=== PATIENT | male | born 1945 | race Caucasian/White ===

== ENCOUNTER → 2024-03-04 | Outpatient (CLI) | payer MEDICARE, SELFPAY ==
[2024-03-04 12:22] LABS: Absolute Lymphocyte Count 2.99 X10^3/uL (0.83-4.51); Absolute Neutrophil Count 4.1 X10^3/uL (2.0-7.7); Basophil# 0.06 X10^3/uL; Basophil% 0.8 % (0-1); Eosinophil# 0.07 X10^3/uL; Eosinophils% 0.9 % (0-5); Hematocrit 44.4 % (40-54); Hemoglobin 14.2 g/dL (13.0-16.5); Lymphocyte # 2.99 X10^3/ul (0.83-4.51); Lymphocyte % 38.3 % (19-41); Mean Corpuscular Hgb 29.1 pg (27.0-32.0); Mean Platelet Vol. 8.7 fl (6.2-12.0); Monocyte# 0.61 X10^3/uL; Monocyte% 7.8 % (0-10); NRBC Flagged by Analyzer 0 % (0-5); Neutrophil # 4.06 X10^3/uL (2.7-7.7); Neutrophil % 51.9 % (47-70); Platelet Count 149 K/mm3 (150-450); RBC Distribution Width SD 46.3 fl (35.1-43.9); Red Blood Count 4.88 M/mm3 (4.6-6.2); White Blood Count 7.8 K/mm3 (4.4-11.0)
[2024-03-04 12:42] LABS: ALB/GLOB Ratio 1.2 RATIO (0.9-2.4); AST(SGOT) 25 U/L (15-37); Alanine Aminotransfer ALT/SGPT 42 U/L (16-61); Albumin, Serum 3.4 g/dL (3.2-5.0); Alkaline Phosphatase 107 U/L (45-117); Anion Gap 1 (5-15); BUN 23 mg/dL (7-18); BUN/Creat Ratio 19.3 RATIO (10-20); Chloride 106 mmol/L (98-107); Cholesterol 133 mg/dL (200); Creatinine, Serum 1.19 mg/dL (0.70-1.30); EST Glomerular Filtration Rate 63 mL/min (>60); Est Glom Filt Rate - Afr Amer 76 mL/min (>60); Globulin 2.8 g/dL (2.2-4.2); Glucose 93 mg/dL (74-106); High Density Lipoprotein 50 mg/dL; Potassium 4.3 mmol/L (3.5-5.1); Protein, Total 6.2 g/dL (6.4-8.2); Sodium Level 139 mmol/L (136-145); Triglycerides 107 mg/dL; Very Low Density Lipoprotein 21 mg/dL (5-40)
== END | disposition home or self-care (01) ==
LOC: MTLAB 10:01
PROVIDERS: PCP Family Medicine; Referring Provider Family Medicine; Visit Provider Family Medicine
DX: C91.10 Chronic lymphocytic leukemia of B-cell type not having achieved remission (principal); E78.5 Hyperlipidemia, unspecified; I10 Essential (primary) hypertension
CPT/HCPCS: 36415; 80053; 80061; 85025

== ENCOUNTER → 2025-01-21 | Outpatient (CLI) | payer MEDICARE, SELFPAY ==
--- NOTE | 2025-01-21 11:20 | RAD_ITS ---
EXAM: XR Left Hip With Pelvis When Performed, 2 or 3 Views CLINICAL INDICATION: HIP PAIN TECHNIQUE: Two or three views of the left hip with pelvis when performed. COMPARISON: No relevant prior studies available. FINDINGS: BONES/JOINTS: Moderate degenerative changes of the left hip joint. No acute fracture. No dislocation. SOFT TISSUES: Unremarkable. RAD/HIP, UNI W/ Pelvis 2-3 Views IMPRESSION: Degenerative changes as above. Reading Location: [facility]
[2025-01-21 12:52] LABS: Absolute Lymphocyte Count 2.91 X10^3/uL (0.83-4.51); Absolute Neutrophil Count 4.2 X10^3/uL (2.0-7.7); Basophil# 0.05 X10^3/uL; Basophil% 0.6 % (0-1); Eosinophil# 0.13 X10^3/uL; Eosinophils% 1.6 % (0-5); Hematocrit 43.5 % (40-54); Hemoglobin 14.1 g/dL (13.0-16.5); Lymphocyte # 2.91 X10^3/ul (0.83-4.51); Lymphocyte % 35.4 % (19-41); Mean Corp Hgb Conc 32.4 g/dL (32-36); Mean Corpuscular Hgb 29.4 pg (27.0-32.0); Mean Corpuscular Volume 90.8 fL (80-94); Mean Platelet Vol. 8.8 fl (6.2-12.0); Monocyte% 10.9 % (0-10); NRBC Flagged by Analyzer 0 % (0-5); Neutrophil # 4.21 X10^3/uL (2.7-7.7); Neutrophil % 51.3 % (47-70); Platelet Count 162 K/mm3 (150-450); RBC Distribution Width CV 13.7 % (11.6-14.6); RBC Distribution Width SD 46.2 fl (35.1-43.9); Red Blood Count 4.79 M/mm3 (4.6-6.2); White Blood Count 8.2 K/mm3 (4.4-11.0)
== END | disposition home or self-care (01) ==
PROVIDERS: PCP Family Medicine; Referring Provider Family Medicine; Visit Provider Family Medicine
DX: M25.552 Pain in left hip (principal); I10 Essential (primary) hypertension
CPT/HCPCS: 36415; 73502; 85025

== ENCOUNTER 2025-03-02 16:30 | Outpatient (RCR) | payer MEDICARE, SELFPAY ==
--- NOTE | 2025-02-07 08:41 | HP.PTEVAL_ITS ---
Patient's Visit Information Visit Information Visit Information: CAMERON OGDEN is a 79 year old M referred to Physical Therapy by Dr. Mir Oliva DO with a diagnosis of L hip OA. Date of Evaluation: 02/07/25 Physical Therapist: Dionicio Crowe, KIMOT, OCS, CSCS Visit Plan Frequency: 3x /Week Duration: 4-6 Weeks Plan: 3x/week for 3-6 weeks for 1. manual therapy abd belt mobs L hip flexion and rotations, PROM and leg pull L, teach hip ext ROM and HS strtch for HEP.rollout HS and gluts. 2. strength core and L hip to HEP FALGUNI, wants to use equipment available at [place] and home exercises. 3. 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 Subjective Subjective: L hip is worn out. It has been causing him gradually more apin and concern over last number of years. has to limit distance and avoid twisting. Pain is hsort and sharp but he has to be diligent. In and out of car is painful. Avoids stairs. Avoids lifting. Can take meds OTC if needed but not needing it. Lying in bed can hurt gently for longer. Lying on sides is his norm. Walking helps at night, avoids back sleeping. Pain does not keep him up once he manages it. 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 Hobbies: no active, Basic ADLs: Pain L hip: Pain Intensity (Out of 10): 0 Pain Intensity Range: 0 and 8 Comment: sharp/ pivotting. Objective Objective: Walks I without much antalgia, slight avoidance of L hip ext at end of stance is noticeable. Trasnfers chair and bed I. Steps reciprocal with railing. LB AROM stiff but WFL. Knees and ankles aROM WFL. Hip PROM L 95 flexion with pain laterally vs 105 on R. abd 16 L and 20 R, rotation IR pain on L 5 degrees, R is 8, er 50 L with pain and 70 R. reflexes 2/3 patella adn achilles B. Sensation LE WNL to gross light touch B LE flex HS tight B at -40 90/90 tst, wuads are funcitonal, gastroc funcitonal. strength L hip abd and ext 3, flexion 3+ with pain, R side 3+. knee and ankle strength 4- B. + ELHAM and FADDIR on L. + L hip scour. Balance/Special Test Scores Lower Extremity Functional Score: 29 Goals Goal 1:: Pain iin L hip 0-2/10 at worst adn 50% better Goal Time Frame: 4-6 Weeks Goal 2:: Pivot without pain L hip Goal Time Frame: 4-6 Weeks Goal 3:: sleep without interruption at night Goal Time Frame: 4-6 Weeks Goal 4:: LEFS score 45 Goal Time Frame: 4-6 Weeks Goal 5:: Walk to garage without increased pain Goal Time Frame: 4-6 Weeks Rehabilitation Potential Physical Therapy Diagnosis: L hip pain and weakness and stiffness starting to limit comfortable function. Rehabilitation Potential: Fair Anticipated Interventions Patient/Client Instruction: Educate patient on: Condition and Plan of Care For the Purpose of:: To decrease pain, To increase ROM, To improve nutrient delivery to tissue, To improve muscle performance and motor function, To increase tolerance to activity/condition/position, To improve ability of physical actions for home/community/work/leisure and To improve gait and locomotor functions Therapeutic Exercise to Include: Strength training, Flexibilty training, Gait and locomotor training, Passive ROM and Active ROM For the Purpose of:: To decrease pain, To increase ROM, To improve nutrient delivery to tissue, To improve muscle performance and motor function, To increase tolerance to activity/condition/position, To improve ability of physical actions for home/community/work/leisure and To improve gait and locomotor functions Manual Therapy Techniques to Include: Mobilization, Passive ROM and Soft tissue mobilization For the Purpose of:: To decrease pain, To increase ROM, To improve nutrient delivery to tissue, To improve muscle performance and motor function and To increase tolerance to activity/condition/position Thermo therapy (hot pack): Yes For the Purpose of:: To improve nutrient delivery to tissue Text: Thank you for the opportunity to evaluate your patient. For Medicare and Medicare HMO plans, please review the plan of care and approve it. It will need to be FAXED BACK to us at [phone] for Medicare purposes. For Medicare only, by signing this I certify the plan of care. Please let me know if there are questions or concerns regarding this plan of care. Physician Signature: Date:
--- NOTE | 2025-03-02 16:49 | HP.PTDCSUM ---
Discharge Summary D/C summary: It has been my pleasure to treat CAMERON OGDEN referred by Dr. Mir Oliva DO, with the diagnosis of L hip OA for a total of 11 visit(s). Discharge Date: 03/02/25 Please see the following information for a summary of their discharge status. Subjective Subjective: Doing a lot better. Feels a lot looser. Walking normally for the first time in months. HEP can continue to do. Pain still up to 7/10 with pivotting but transient. No pain today. Sleeping OK. Pain L hip: Pain Intensity (Out of 10): 0 Overall Improvement % Improvement: 85 Objective Objective/Function: Walks normal today without deficits, steps reciprocal without rail. Hip ROM L 105 flexion, 55 er, 4 ir with pain. Goals Goal 1:: Pain iin L hip 0-2/10 at worst adn 50% better Goal Progress: Progressing Goal 2:: Pivot without pain L hip Goal Progress: Goal Met Goal 3:: sleep without interruption at night Goal Progress: Goal Met Goal 4:: LEFS score 45 Goal Progress: Progressing Goal 5:: Walk to garage without increased pain Goal Progress: Goal Met Plan Plan: d/c to HEP D/C Information d/c sentence: If there are questions or concerns regarding this patient's physical therapy, please feel free to call me at [phone]. Thank you for the referral of this patient. Sincerely, Dionicio Crowe, DPT, OCS, CSCS Balance/Gait/Functional tests Balance/Special Test Scores Lower Extremity Functional Score: 46 Improvement % Improvement: 85
== END 2025-03-02 19:00 | disposition home or self-care (01) ==
LOC: PT 16:30
PROVIDERS: PCP Family Medicine; Referring Provider Orthopaedic Surgery; Visit Provider Orthopaedic Surgery
DX: M16.12 Unilateral primary osteoarthritis, left hip (principal)
CPT/HCPCS: 97110; 97140; 97161; 97164

== ENCOUNTER 2025-04-06 07:07 | Outpatient (CLI) | payer MEDICARE, SELFPAY ==
--- OUTSIDE RECORDS SUMMARY | 2025-04-06 07:20 | XMS RPT_ITS | CCD ---
Author Organization [facility] ion [facility] Care Team Providers Care Wealth Management Director Name Role Phone YOMI BARNEY Unavailable Unavailable YOMI BARNEY Unavailable Unavailable IMCA Unavailable Unavailable TALAMPAS, ACRLOS A Unavailable Unavailable JOY BARNEYNETH Unavailable Unavailable SAVITA, YOMI Unavailable Unavailable TALAMPAS, CARLOS A Unavailable Unavailable Brenda NICHOLS, Antonia Primary Care Provider Joshua Veloz MD Unavailable Romina Majano MD Primary Care Provider [phone] Romina Majano MD Attending Provider [phone] Romina Majano MD Referring Provider [phone] Romina Majano Primary Care Unavailable Romina Majano Referring Unavailable Mir Oliva Attending Unavailable Romina Majano Primary Care Unavailable Romina Majano Attending Unavailable Romina Majano Referring Unavailable Mir Oliva Attending Unavailable Mir Oliva Referring Unavailable Romina Majano Primary Care Unavailable Allergies Allergy Classification Reported Allergen(s) Allergy Type Date of Onset Reaction(s) Facility (8 sources) amitriptyline; Translations: [AMITRIPTYLINE] Drug Allergy 5 GI Upset [facility] Repository (4 sources) escitalopram; Translations: [ESCITALOPRAM OXALATE] [facility] nort[facility]; Translations: [NORTRIPTYLINE] Drug Allergy 5 Other: See Comments [facility] Repository (4 sources) valproate; Translations: [DIVALPROEX SODIUM] Drug Allergy 4 Other: See Comments [facility] Repository (1 source) [facility] [employer]; Translations: [ANIMALS] allergy to substance 2 [facility] Work Phone: (1 source) Valproate Drug Allergy 2 [facility] Work Phone: (1 source) WOOL; Translations: [WOOL] allergy to substance 2 [facility] Work Phone: Medications Current Medications Medication Drug Class(es) Dates Sig (Normalized) Sig (Original) acyclovir 400 mg oral tablet (2 sources) Herpesvirus Nucleoside Analog DNA Polymerase Inhibitor, Herpes Simplex Virus Nucleoside Analog DNA Polymerase Inhibitor, Herpes Zoster Virus Nucleoside Analog DNA Polymerase Inhibitor Start: 09-12-2017 take 1 tablet by mouth twice daily Acyclovir (Zovirax) 400 MG tablet Active 400 mg PO TWICE A DAY September 12, 2017 1:00am aspirin 81 mg delayed release oral tablet (4 sources) Platelet Aggregation Inhibitor, Nonsteroidal Anti-inflammatory Drug Start: 11-15-2016 take 1 tablet by mouth once daily Aspirin (Aspir-Low) 81 MG tablet,delayed release (DR/EC) Active 81 mg PO DAILY November 15, 2016 1:00am Comment on above: Take 1 tablet by marek th once daily. betamethasone 0.5 mg/ml topical lotion (4 sources) Corticosteroid Start: 02-12-2017 Betamethasone Dipropionate 60 ML lotion Active 60 mL TP DAILY September 12, 2017 1:00am Comment on above: Apply 1 application to affected area once daily. To scalp. Dispense 1 bottle, not 1ml carvedilol 3.125 mg oral tablet (5 sources) alpha-Adrenergic Allegra, beta-Adrenergic Allegra Start: 11-15-2016 take 1 tablet by mouth twice daily Carvedilol (Coreg) 3.125 MG tablet Active 3.125 mg PO TWICE A DAY November 15, 2016 1:00am Comment on above: Take 1 tablet by marek th twice daily with meals. cholecalciferol 0.025 mg oral capsule (5 sources) Vitamin D Start: 05-25-2014 take 1 capsule by mouth once daily Cholecalciferol (Vitamin D3) (Vitamin D3) 1,000 UNIT capsule Active 1000 U PO DAILY September 12, 2017 1:00am take 1 tablet by mouth once elpidio y VITAMIN D3 25 MCG (1000 UT) TABS 1 tablet by mouth once a day cholecalciferol (vitamin d3) [id number] Rhonda Martinez Comment on above: Take 1 capsule by mo ut once daily. docusate sodium 100 mg oral capsule (2 sources) Start: 09-12-20 17 take 2 capsules by mouth once daily as needed for constipation Docusate Sodium (Colace) 100 MG capsule Active 200 mg PO DAILY NEEDED as needed for Constipation September 12, 2017 1:00am finasteride 5 mg oral tablet (5 sources) 5-alpha Reductase Inhibitor Start: 04-15-20 15 take 1 tablet by mouth once daily Finasteride 5 MG tablet Active 5 mg PO DAILY April 15, 2015 12:00am take 1 tablet by mouth once elpidio y finasteride tablet 1 tablet by mouth once a day finasteride tablet Rhonda Martinez Comment on above: Take 1 tablet by marke once daily. Multivitamin (Multiple Vitamins) 1 EACH tablet (2 sources) Start: 11-15-2016 take 1 tablet by mouth once daily Multivitamin (Multiple Vitamins) 1 EACH tablet Active 1 {tbl} PO DAILY November 15, 2016 1:00am Start: 11-15-2016 Multivitamin ( Multiple Vitamins) 1 EACH tablet Active 1 TABLET PO DAILY November 15, 2016 1:00am nitroglycerin 0.4 mg sublingual tablet (2 sources) Nitrate Vasodilator Start: 11-15-2016 Nitroglyce rin 0.4 MG tablet Active 0.4 mg SL Q5M as needed for Chest Pain November 15, 2016 1:00am Start: 11-15-2016 Nitroglycerin Active 0.4 MG SL Q5M November 15, 2016 1:00am polyethylene glycol 3350 71473 mg powder for oral solution (5 sources) Osmotic Laxative Start: 09-12-2017 take 17 g by mouth once daily as needed for constipation Polyethylene Glycol 3350 17 GM powder in packet Active 17 g PO DAILY as needed for Constipation September 12, 2017 1:00am take 1 scoop(s) by mouth once da erin MIRALAX 17 GM/SCOOP POWD 1 scoop by mouth once a day polyethylene glycol 3350 [id number] Rhonda Martinez Comment on above: Take 17 g by mouth o nce daily. (around 7PM) triamcinolone acetonide 0.25 mg/ml topical cream (2 sources) Corticosteroid Start: 09-12-2017 Triamcinolone Acetonide 15 GM cream Active 80 g TP THREE TIMES A DAY September 12, 2017 1:00am Start: 09-12-2017 Triamcinolone Acetonide Active 80 GM TP THREE TIMES A DAY September 12, 2017 1:00am Completed/Discontinued Medications Medication Drug Class(es) Dates Sig (Normalized) Sig (Original) atorvastatin 20 mg oral tablet (5 sources) HMG-CoA Reductase Inhibitor Start: 05-09-2020 take 1 tablet by mouth once daily atorvastatin (LIPITOR) 20 mg tablet Take 1 tablet by mouth once daily. 90 tablet 3 05/09/2020 Active Start: 11-15-2016 take 1 tablet by marek th at bedtime Atorvastatin 80 MG tablet Active 80 mg PO AT BEDTIME November 15, 2016 1:00am Comment on above: Take 1 tablet by marek th once daily. CENTRUM SILVER TAB (2 sources) Start: 11-06-19 CENTRUM SILVER TAB Take one(1) tablet daily. 1 0 11/06/2006 Active Comment on above: Take one(1) tablet d aily. etodolac 400 mg oral tablet (1 source) Nonsteroidal Anti-inflammatory Drug Start: 01-23-20 take 1 tablet by mouth once as needed for pain ETODOLAC 400 MG TABS Take 1 tablet by mouth every twelve hours as needed for pain etodolac [id number] Joshua Veloz MD floragen digestion (1 source) take 390 mg by mouth once daily floragen digestion 390 mg by mouth once a day floragen digestion Rhonda Martinez fluticasone propionate 0.05 mg/actuat metered dose nasal spray (2 sources) Corticosteroid Start: 09-09-20 18 take 2 spray(s) by mouth once daily fluticasone (FLONASE) 50 mcg/actuation nasal spray Indications: Dysfunction of Eustachian tube, unspecified laterality Use 2 Sprays in each nostril once daily. Rinse mouth after use. 1 Bottle 1 09/09/2018 Active Comment on above: Use 2 Sprays in each nostril once daily. Rinse mouth after use. multivitamin tablet (1 source) take 1 tablet by mouth once daily multivitamin tablet tablet by mouth once a day multivitamin tablet Rhonda Martinez pantoprazole 20 mg delayed release oral tablet (2 sources) Proton Pump Inhibitor Start: 05-09-20 20 take 1 tablet by mouth once daily before breakfast pantoprazole DR (PROTONIX) 20 mg tablet Indications: Panic attacks , Esophageal dysphagia Take 1 tablet by mouth daily before breakfast. Take on empty stomach, 1/2 hr before meal. 30 tablet 1 05/09/2020 Active Comment on above: Take 1 tablet by marek th daily before breakfast. Take on empty stomach, 1/2 hr before meal. psyllium husk (1 source) Metamucil 1 tablespoon by mouth once a day as directed psyllium husk Rhonda [place] quinapril 20 mg oral tablet (5 sources) Angiotensin Converting Enzyme Inhibitor Start: 01-17-20 21 take 1 tablet by mouth once daily quinapril (ACCUPRIL) 20 mg tablet Take 1 tablet by mouth once daily. 90 tablet 3 01/16/2021 Active Start: 04-15-2015 take 4 tablets by mo [facility] once daily Quinapril (Accupril) 5 MG tablet Active 20 mg PO DAILY April 15, 2015 12:00am Comment on above: Take 1 tablet by marek th once daily. Problems Active Problems Problem Classification Problem Date Documented Da te Episodic/Chronic Coronary atherosclerosis and other heart disease (4 sources) Atherosclerotic heart disease of [place] coronary artery without angina pectoris; Translations: [Coronary arteriosclerosis] Onset: 6 02-11-2016 Chronic Disorders of lipid metabolism (2 sources) Hyperlipidemia; Translations: [Hyperlipidemia, unspecified] Onset: 2 01-01-2012 Chronic Diverticulosis and diverticulitis (2 sources) Diverticulosis of colon; Translations: [Diverticulosis of large intestine without perforation or abscess without bleeding] Onset: 7 03-26-2007 Chronic E Codes: Adverse effects of medical drugs (2 sources) Laxative adverse reaction; Translations: [Adverse effect of stimulant laxatives, initial encounter] 09-13-2017 Episodic Esophageal disorders (2 sources) Gastroesophageal reflux disease; Translations: [Gastro-esophageal reflux disease without esophagitis] Onset: 7 11-06-2006 Chronic Essential hypertension (3 sources) Essential (primary) hypertension; Translations: [Essential hypertension] Onset: 6 01-16-2016 Chronic Gastritis and duodenitis (4 sources) Acute gastritis; Translations: [Acute gastritis] Onset: 7 07-23-2005 Episodic Headache; including migraine (4 sources) Migraine; Translations: [Migraine, unspecified, not intractable, without status migrainosus] Onset: 0 10-31-2010 Chronic Hyperplasia of prostate (4 sources) Benign prostatic hypertrophy without outflow obstruction; Translations: [Benign prostatic hyperplasia without lower urinary tract symptoms] Onset: 8 01-26-2008 Chronic Leukemias (2 sources) Chronic lymphoid leukemia, disease; Translations: [Chronic lymphocytic leukemia of B-cell type not having achieved remission] Onset: 4 08-09-2014 Chronic Osteoarthritis (2 sources) Unilateral primary osteoarthritis, left hip; Translations: [Osteoarthrosis, localized, primary, pelvic region and thigh] Onset: 2 01-22-2022 Chronic Other and ill-defined heart disease (2 sources) Left ventricular cardiac dysfunction; Translations: [Heart disease, unspecified] Onset: 5 07-14-2015 Chronic Other gastrointestinal disorders (2 sources) Irritable bowel syndrome; Translations: [Irritable bowel syndrome without diarrhea] 07-23-2005 Chronic Other non-traumatic joint disorders (1 source) Pain in left hip; Translations: [Pain in left hip] Onset: 5 Episodic Unclassified (1 source) Unknown / UNK(Unknown) Onset: 6 Past or Other Problems Problem Classification Problem Date Documented Da te Episodic/Chronic Abdominal hernia (4 sources) Diaphragmatic hernia; Translations: [Diaphragmatic hernia without obstruction or gangrene] Onset: 03-26-2007 03-26-2007 Episodic Calculus of urinary tract (2 sources) Kidney stone; Translations: [Calculus of kidney] Onset: 04-15-2012 04-15-2012 Episodic Cardiac dysrhythmias (2 sources) Sinus bradycardia; Translations: [Bradycardia, unspecified] Onset: 07-14-2015 07-14-2015 Episodic Coronary atherosclerosis and other heart disease (2 sources) Drug coated stent in circumflex branch of left coronary artery; Translations: [Presence of coronary angioplasty implant and graft] Onset: 07-14-2015 07-14-2015 Episodic Genitourinary symptoms and ill-defined conditions (2 sources) Blood in urine; Translations: [Hematuria, unspecified] Onset: 04-15-2012 04-15-2012 Episodic Malaise and fatigue (2 sources) Fatigue; Translations: [Other fatigue] Onset: 05-25-2014 05-25-2014 Episodic Other and unspecified benign neoplasm (2 sources) Melanocytic nevus; Translations: [Melanocytic nevi, unspecified] Onset: 10-31-2010 10-31-2010 Episodic Other and unspecified benign neoplasm (2 sources) Eccrine hidradenoma; Translations: [Other benign neoplasm of skin, unspecified] Onset: 11-20-2012 11-20-2012 Episodic Other disorders of stomach and duodenum (2 sources) Acquired hypertrophic pyloric stenosis; Translations: [Adult hypertrophic pyloric stenosis] Onset: 03-26-2007 03-26-2007 Episodic Other gastrointestinal disorders (2 sources) Finding of abdominopelvic segment of trunk; Translations: [Left lower quadrant abdominal swelling, mass and lump] Onset: 12-11-2007 12-11-2007 Episodic Other male genital disorders (2 sources) Disorder of male genital organ; Translations: [Hydrocele, unspecified] Onset: 01-26-2008 01-26-2008 Episodic Other male genital disorders (2 sources) Pain in testicle; Translations: [Testicular pain, unspecified] Onset: 04-15-2012 04-15-2012 Episodic Other male genital disorders (2 sources) Disorder of reproductive system; Translations: [Hydrocele, unspecified] Onset: 11-03-2012 11-03-2012 Episodic Other nutritional; endocrine; and metabolic disorders (2 sources) Weight loss; Translations: [Abnormal weight loss] Onset: 05-25-2014 05-25-2014 Episodic Other screening for suspected conditions (not mental disorders or infectious disease) (2 sources) Raised prostate specific antigen; Translations: [Elevated prostate specific antigen [PSA]] Onset: 03-01-2010 03-01-2010 Episodic Other skin disorders (2 sources) Skin lesion; Translations: [Disorder of the skin and subcutaneous tissue, unspecified] Onset: 11-20-2012 11-20-2012 Episodic Pneumonia (except that caused by tuberculosis or sexually transmitted disease) (2 sources) Recurrent pneumonia; Translations: [Pneumonia, unspecified organism] Onset: 12-19-2014 12-19-2014 Episodic Residual codes; unclassified (2 sources) Family history of malignant neoplasm of kidney; Translations: [Family history of malignant neoplasm of kidney] Onset: 03-26-2007 03-26-2007 Episodic Residual codes; unclassified (2 sources) Persistent insomnia; Translations: [Insomnia, unspecified] Onset: 02-02-2018 02-02-2018 Episodic Unclassified (1 source) Problem Results Test Name Value Interpretation Reference Range Facility PT D/C Summary (1)on 025 PT D/C Summary (1) [facility] [address] [place] [address] / REHABILITATION SERVICES DISCHARGE SUMMARY MR#: [id number] Acct: [id number] Name: CAMERON OGDEN Rep #: [id number] : 1945 79 From: Dionicio Crowe DPT, OCS, CSCS Referring Dr.: Dr. Mir Oliva DO Status: R EG RCR Insurance: [employer] MED[employer]ARE PPO SELF PAY INSURANCE Discharge Summary D/C summary: It has been my pleasure to treat CAMERON OGDEN referred by Dr. Mir Oliva DO, with the diagnosis of L hip OA for a total of 11 visit(s). Discharge Date: 03/02/25 Please see the following information for a summary of their discharge status. Subjective Subjective: Doing a lot better. Feels a lot looser. Walking normally for the first time in months. HEP can continue to do. Pain still up to 7/10 with pivotting but transient. No pain today. Sleeping OK. Pain L hip: Pain Intensity (Out of 10): 0 Overall Improvement % Improvement: 85 Objective Objective/Function: Walks normal today without deficits, steps reciprocal without rail. Hip ROM L 105 flexion, 55 er, 4 ir with pain. Goals Goal 1:: Pain iin L hip 0-2/10 at worst adn 50% better Goal Progress: Progressing Goal 2:: Pivot without pain L hip Goal Progress: Goal Met Goal 3:: sleep without interruption at night Goal Progress: Goal Met Goal 4:: LEFS score 45 Goal Progress: Progressing Goal 5:: Walk to garage without increased pain Goal Progress: Goal Met Plan Plan: d/c to HEP D/C Information d/c sentence: If there are questions or concerns regarding this patient's physical therapy, please feel free to call me at [phone]. Thank you for the referral of this patient. Sincerely, Dionicio Crowe DPT, OCS, CSCS Balance/Gait/Functional tests Balance/Special Test Scores Lower Extremity Functional Score: 46 Improvement % Improvement: 85 03/02/25 1649 CC: Dr. Romina Majano MD; Dr. Mir Oliva DO EBG Signed Normal [facility] Inital Evaluation (1) - PTon 02-07-2025 Inital Evaluation (1) - PT [facility] [address] [place] [address] / REHABILITATION SERVICES INITIAL EVALUATION MR#: [id number] Acct: [id number] Name: CAMERON OGDEN Rep #: [id number] : 1945 79 From: Dionicio Crowe DPT, LAWR[place], MELODY Referring Dr.: Dr. Mir Oliva DO Status: R EG RCR Insurance: [employer] MEDICARE PPO SELF PAY INSURANCE Patient's Visit Information Visit Information Visit Information: CAMERON OGDEN is a 79 year old M referred to Physical Therapy by Dr. Mir Oliva DO with a diagnosis of L hip OA. Date of Evaluation: 02/07/25 Physical Therapist: Dionicio Crowe DPT, LAWRENCE, MELODY Visit Plan Frequency: 3x /Week Duration: 4-6 Weeks Plan: 3x/week for 3-6 weeks for 1. manual therapy abd belt mobs L hip flexion and rotations, PROM and leg pull L, teach hip ext ROM and HS strtch for HEP.rollout HS and gluts. 2. strength core and L hip to HEP FALGUNI, wants to use equipment available at [facility] and home exercises. 3. 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 Subjective Subjective: L hip is worn out. It has been causing him gradually more apin and concern over last number of years. has to limit distance and avoid twisting. Pain is hsort and sharp but he has to be diligent. In and out of car is painful. Avoids stairs. Avoids lifting. Can take meds OTC if needed but not needing it. Lying in bed can hurt gently for longer. Lying on sides is his norm. Walking helps at night, avoids back sleeping. Pain does not keep him up once he manages it. 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 Hobbies: no active, Basic ADLs: Pain L hip: Pain Intensity (Out of 10): 0 Pain Intensity Range: 0 and 8 Comment: sharp/ pivotting. Objective Objective: Walks I without much antalgia, slight avoidance of L hip ext at end of stance is noticeable. Trasnfers chair and bed I. Steps reciprocal with railing. LB AROM stiff but WFL. Knees and ankles aROM WFL. Hip PROM L 95 flexion with pain laterally vs 105 on R. abd 16 L and 20 R, rotation IR pain on L 5 degrees, R is 8, er 50 L with pain and 70 R. reflexes 2/3 patella adn achilles B. Sensation LE WNL to gross light touch B LE flex HS tight B at -40 90/90 tst, wuads are funcitonal, gastroc funcitonal. strength L hip abd and ext 3, flexion 3+ with pain, R side 3+. knee and ankle strength 4- B. + ELHAM and FADDIR on L. + L hip scour. Balance/Special Test Scores Lower Extremity Functional Score: 29 Goals Goal 1:: Pain iin L hip 0-2/10 at worst adn 50% better Goal Time Frame: 4-6 Weeks Goal 2:: Pivot without pain L hip Goal Time Frame: 4-6 Weeks Goal 3:: sleep without interruption at night Goal Time Frame: 4-6 Weeks Goal 4:: LEFS score 45 Goal Time Frame: 4-6 Weeks Goal 5:: Walk to garage without increased pain Goal Time Frame: 4-6 Weeks Rehabilitation Potential Physical Therapy Diagnosis: L hip pain and weakness and stiffness starting to limit comfortable function. Rehabilitation Potential: Fair Anticipated Interventions Patient/Client Instruction: Educate patient on: Condition and Plan of Care For the Purpose of:: To decrease pain, To increase ROM, To improve nutrient delivery to tissue, To improve muscle performance and motor function, To increase tolerance to activity/condition/position , To improve ability of physical actions for home/community/work/leisure and To improve gait and locomotor functions Therapeutic Exercise to Include: Strength training, Flexibilty training, Gait and locomotor training, Passive ROM and Active ROM For the Purpose of:: To decrease pain, To increase ROM, To improve nutrient delivery to tissue, To improve muscle performance and motor function, To increase tolerance to activity/condition/position , To improve ability of physical actions for home/community/work/leisure and To improve gait and locomotor functions Manual Therapy Techniques to Include: Mobilization, Passive ROM and Soft tissue mobilization For the Purpose of:: To decrease pain, To increase ROM, To improve nutrient delivery to tissue, To improve muscle performance and motor function and To increase tolerance to activity/condition /position Thermo therapy (hot pack): Yes For the Purpose of:: To improve nutrient delivery to tissue Text: Thank you for the opportunity to evaluate your patient. For Medicare and Medicare HMO plans, please review the plan of care and approve it. It will need to be FAXED BACK to us at [phone] for Medicare purposes. For Medicare only, by signing this I certify the plan of care. Please let me know if there are questions or concerns regarding this plan of care. Physici (more content not included)... Normal [facility] Orthopedic Visit Reporton Orthopedic Visit Report [facility] [address] [place] [address] OFFICE VISIT Date of Service: 01/31/25 MR#: [id number] Acct: [id number] Name: CAMERON OGDEN Rep #: [id number] : 1945 Provider: Dr. Mir Srinivasan so, DO Age/Sex: 79/M Location: [facility] [place] Status: Signed Intake Vital Signs 09/12/17 14:32 01/31/25 08:28 Height 5 ft 4 in 5 ft 4 in Weight: 150 lb BMI 25.7 Intake Visit Reasons: LEFT HIP Chief Complaint: Left Hip Pain Accompanied by: Self Is patient in pain?: Yes Pain scale (1-10): 6 Allergies amitriptyline Adverse Reaction (Verified 01/31/25 08:28) Other Medications ???Medication ???Instructions ???Recorded ???Confirmed ???Type finasteride 5 mg tablet 5 mg PO DAILY 04/15/15 01/31/25 Hi story carvedilol 3.125 mg tablet (Coreg) 3.125 mg PO BID 11/15/16 5 History multivitamin (Multiple Vitamins 1 tab PO DAILY 11/15/16 01/31/25 H istory tablet) cholecalciferol (vitamin D3) 25 1,000 unit PO DAILY 09/12/1701/31 History mcg (1,000 unit) capsule (Vitamin D3) atorvastatin 20 mg tablet mg PO 01/31/25 01/31/25 History lisinopril 20 mg tablet mg PO 01/31/25 01/31/25 History venlafaxine 37.5 mg 37.5 mg PO QDAY 01/31/25 01/31/25 History capsule,extended release 24 hr Have you fallen in the past year?: No PFSH Surgical History (Updated 01/31/25 @ 08:43 by Madelyn De La Rosa) History of hernia repair History of hemorrhoidectomy H/O heart artery stent Family History Other Cancer Social History Smoking Status: Never smoker alcohol intake: never HPI LEFT HIP Details: This documentation accurately reflects the service provided and the decisions made by me, Dr. Mir Oliva, DO 01/31/25821. Part of today???s visit was documented by Madelyn Uriarte ATC, acting as scribe. CAMERON OGDEN is a 79 year old M here today for left hip pain. Patient states the hip has been bothering him for at least 4 years. He states he had been exercising and it started crunching/clicking and at one time it really bothered him. He thought it was just groin pain and it ended up going away but gradually started bothering him again. He states the pain varies from time to time but it can bother him in the groin or the lateral aspect of the hip. He denies any numbness/tingling. He denies any catching/clicking. He denies any injections, physical therapy or prior surgery. He states he will occasionally have some lumbar spine pain but nothing consistent. He denies any pain medication. He was prescribed etodolac and it did give him relief but this was about 3 years ago since he took it. He complains of a quick intensity pain and then it seems to go away. Denies any pain with bowel movements. Ortho Exam General General: Yes no acute distress and Yes well groomed Neurologic: Yes alert and Yes oriented x3 Psychologic: Yes reasonable and appropriate Left Hip Skin/Wound: Yes CDI, No Ecchymosis, No soft tissue swelling and No Erythema Hip: Absent eccymosis, soft tissue swelling, erythema or tender to palpate - Impingement Test: 1 Labral Stress Test: 2 Special Tests: No iliopsoas snap or IT band snap HIP: - tenderness over IT band IR 8 with mild reproduction of pain ER 85 with no pain - pain with resisted hip flexion - pain with resisted hip abduction No significant swelling with lower extremity no gross motor or sensory deficits intact and station light touch Supplemental Info 01/21/2025 x-ray left hip: There is moderate joint space narrowing, with subtle subchondral cystic changes and sclerosis Coding Level of Care Code Off vis,new,level 3 Diagnoses Primary osteoarthritis of left hip M16.12 Osteoarthritis type: primary Assessment and Plan Assessment and Plan (1) Osteoarthritis of left hip: Status: Acute Qualifiers: Osteoarthritis type: primary Qualified Code(s): M16.12 - Unilateral primary osteoarthritis, left hip Orders: Referrals Physical Therapy Referral M16.12 - Unilateral primary osteoarthritis, left hip Plan Reviewed imaging with the patient today. Explained that he does have some moderate narrowing of the joint but it is not quite bone on bone just yet but does have some arthritis. His options would be: do nothing, physical therapy to strengthen the muscles and loosen the hip joint, anti-inflammatory medication, and eventually a JOHN. Explained that there are chances of having arthritic flare-ups and when this happens he should take anti-inflammatory for a couple weeks and it will knock out the pain and inflammation. Recommend patient take Ibuprofen for the pain or when he has flare-ups and he is able to take 3 pills up to 3 melissa (more content not included)... Normal [facility] Absolute neutrophil countOrd ered By: Romina Majano on 01-21-2025 Neutrophils (Bld) [#/Vol] 4.2 10*3/uL 2.0-7.7 [facility] Basophil percentageOrdered B y: Romina Majano on 01-21-2025 Basophils/100 WBC (Bld) 0.6 % 0-1 [facility] CBC W/Diff, Automatedon 01-02 Absolute Lymph 2.91 X10 3/uL Normal 0.83-4.51 [facility] Comment on above: Order Comment: Order Date: 11/23/24 Order Info: 0184-1 - CBCD Performed By: #### L 100.0100 #### [facility] [address] [place], [address] Absolute Neut 4.2 X10 3/uL Normal 2.0-7.7 [facility] Comment on above: Order Comment: Order Date: 11/23/24 Order Info: 0184-1 - CBCD Performed By: #### L 100.0100 #### [facility] [address] [place], [address] Basophils/100 WBC (Bld) 0.6 % Normal 0-1 [facility] Comment on above: Order Comment: Order Date: 11/23/24 Order Info: 0184-1 - CBCD Performed By: #### L 100.0100 #### [facility] [address] [place], [address] Eosinophils/100 WBC (Bld) 1.6 % Normal 0-5 [facility] Comment on above: Order Comment: Order Date: 11/23/24 Order Info: 0184-1 - CBCD Performed By: #### L 100.0100 #### [facility] [address] [place], [address] Erythrocyte distribution width (RBC) [Ratio] 13.7 % Normal 11.6-14.6 [facility] Comment on above: Order Comment: Order Date: 11/23/24 Order Info: 0184-1 - CBCD Performed By: #### L 100.0100 #### [facility] [address] [place], [address] Hematocrit (Bld) [Volume fraction] 43.5 % Normal 40-54 [facility] Comment on above: Order Comment: Order Date: 11/23/24 Order Info: 018- - CBCD Performed By: #### L 100.0100 #### [facility] [address] [place], [address] Hemoglobin (Bld) [Mass/Vol] 14.1 g/dL Normal 13.0-16.5 [facility] Comment on above: Order Comment: Order Date: 11/23/24 Order Info: 018- - CBCD Performed By: #### L 100.0100 #### [facility] [address] [place], [address] IG% 0.200 Normal 0.0-0.9 [facility] Comment on above: Order Comment: Order Date: 11/23/24 Order Info: 018- - CBCD Result Comment: IG% - Immature Granulocytes (promyelocytes, myelocytes and metamyelocytes) > 1% indicates that a LEFT SHIFT is Present. Performed By: #### L 100.0100 #### [facility] [address] [place], [address] Lymphocytes/100 WBC (Bld) 35.4 % Normal 19-41 [facility] Comment on above: Order Comment: Order Date: 11/23/24 Order Info: 0184- - CBCD Performed By: #### L 100.0100 #### [facility] [address] [place], [address] MCH (RBC) [Entitic mass] 29.4 pg Normal 27.0-32.0 [facility] Comment on above: Order Comment: Order Date: 11/23/24 Order Info: 0184- - CBCD Performed By: #### L 100.0100 #### [facility] [address] [place], [address] MCHC (RBC) [Mass/Vol] 32.4 g/dL Normal 32-[address] [facility] Comment on above: Order Comment: Order Date: 11/23/24 Order Info: 0184-1 - CBCD Performed By: #### L 100.0100 #### [facility] [address] [place], [address] MCV (RBC) [Entitic vol] 90.8 fL Normal 80-94 [facility] Comment on above: Order Comment: Order Date: 11/23/24 Order Info: 0184- - CBCD Performed By: #### L 100.0100 #### [facility] [address] [place], [address] Monocytes/100 WBC (Bld) 10.9 % High 0-10 [facility] Comment on above: Order Comment: Order Date: 11/23/24 Order Info: 0184- - CBCD Performed By: #### L 100.0100 #### [facility] [address] [place], [address] Neutrophils/100 WBC (Bld) 51.3 % Normal 47-70 [facility] Comment on above: Order Comment: Order Date: 11/23/24 Order Info: 0184- - CBCD Performed By: #### L 100.0100 #### [facility] [address] [place], [address] Nucleated RBC (Bld) [#/Vol] 0 10*3/uL Normal 0-5 [facility] Comment on above: Order Comment: Order Date: 11/23/24 Order Info: 0184-1 - CBCD Performed By: #### L 100.0100 #### [facility] [address] [place], [address] Platelet mean volume (Bld) [Entitic vol] 8.8 fL Normal 6.2-12.0 [facility] Comment on above: Order Comment: Order Date: 11/23/24 Order Info: 0184-1 - CBCD Performed By: #### L 100.0100 #### [facility] [address] [place], [address] Platelets (Bld) [#/Vol] 162 10*3/uL Normal 150-450 [facility] Comment on above: Order Comment: Order Date: 11/23/24 Order Info: 018-1 - CBCD Performed By: #### L 100.0100 #### [facility] [address] [place], [address] RBC (Bld) [#/Vol] 4.79 10*6/uL Normal 4.6-6.2 [facility] Comment on above: Order Comment: Order Date: 11/23/24 Order Info: 018- - CBCD Performed By: #### L 100.0100 #### [facility] [address] [place], [address] RDW SD 46.2 fl High 35.1-43.9 [facility] Comment on above: Order Comment: Order Date: 11/23/24 Order Info: 0184- - CBCD Performed By: #### L 100.0100 #### [facility] [address] [place], [address] WBC (Bld) [#/Vol] 8.2 10*3/uL Normal 4.4-11.0 [facility] Comment on above: Order Comment: Order Date: 11/23/24 Order Info: 0184-1 - CBCD Performed By: #### L 100.0100 #### [facility] [address] [place], [address] Eosinophil percentageOrdered By: Romina Majano on 01-21-2025 Eosinophils/100 WBC (Bld) 1.6 % 0-5 [facility] Erythrocyte distribution wid th ratioOrdered By: Romina Majano on 01-21-2025 Erythrocyte distribution width (RBC) [Ratio] 13.7 % 11.6-14.6 [facility] Erythrocyte distribution wid th standard deviationOrdered By: Romina Majano on 01-21-2025 Erythrocyte distribution width (RBC) [Entitic vol] 46.2 fL High 35.1-43.9 [facility] HIP, UNI W/ Pelvis 2-3 Views on 01-21-2025 HIP, UNI W/ Pelvis 2-3 Views [facility] [address] [place], [place] [address] HIP, UNI W/ Pelvis 2-3 Views MR#: [id number] Acct: [id number] Name: CAMERON OGDEN Rep #: [id number] : 1945 M 79 From: Haris Rodgers MD PCP: Dr. Romina Majano MD Status: REG CLI Study: HIP, UNI W/ Pelvis 2-3 Views Date of Exam: Exam# [id number] Ordering Dr: Romina Majano MD EXAM: XR Left Hip With Pelvis When Performed, 2 or 3 Views CLINICAL INDICATION: HIP PAIN TECHNIQUE: Two or three views of the left hip with pelvis when performed. COMPARISON: No relevant prior studies available. FINDINGS: BONES/JOINTS: Moderate degenerative changes of the left hip joint. No acute fracture. No dislocation. SOFT TISSUES: Unremarkable. RAD/HIP, UNI W/ Pelvis 2-3 Views IMPRESSION: Degenerative changes as above. [facility] CC: Dr. Romina Majano MD Form Tamping Machine Operator: Signed Normal [facility] Hematocrit Auto (Bld) [Volum e fraction]Ordered By: Romina Majano on 01-21-2025 Hematocrit (Bld) [Volume fraction] 43.5 % 40-54 [facility] Hemoglobin measurementOrdere d By: Romina Majano on 01-21-2025 Hemoglobin (Bld) [Mass/Vol] 14.1 g/dL 13.0-16.5 [facility] Immature granulocytes/100 WB C Auto (Bld)Ordered By: Romina Majano on 01-21-2025 Immature granulocytes/100 WBC (Bld) 0.200 % 0.0-0.9 [place] [facility] Comment on above: IG% - Immature Granu locytes (promyelocytes, myelocytes and metamyelocytes) > 1% indicates that a LEFT SHIFT is Present. Lymphocytes Auto (Unsp spec) [#/Vol]Ordered By: Romina Majano on 01-21-2025 Lymphocytes (Bld) [#/Vol] 2.91 10*3/uL 0.83-4.51 [facility] Lymphocytes/100 WBC Auto (Un sp spec)Ordered By: Romina Majano on 01-21-2025 Lymphocytes/100 WBC (Bld) 35.4 % 19-41 [facility] MCV (mean corpuscular volume ) determinationOrdered By: Romina Majano on 01-21-2025 MCV (RBC) [Entitic vol] 90.8 fL 80-94 [facility] Mean corpuscular hemoglobin (MCH) determinationOrdered By: [facility] on 01-21-2025 MCH (RBC) [Entitic mass] 29.4 pg 27.0-32.0 [facility] Mean corpuscular hemoglobin concentration (MCHC) determinationOrdered By: Romina Majano on 01-21-2025 MCHC (RBC) [Mass/Vol] 32.4 g/dL 32-[address] [facility] Mean platelet volume determi nationOrdered By: Romina Majano on 01-21-2025 Platelet mean volume (Bld) [Entitic vol] 8.8 fL 6.2-12.0 [facility] Monocyte percentageOrdered B y: Romina Majano on 01-21-2025 Monocytes/100 WBC (Bld) 10.9 % High 0-10 [facility] Neutrophil percentageOrdered By: Romina Majano on 01-21-2025 Neutrophils/100 WBC (Bld) 51.3 % 47-70 [facility] Nucleated red blood cell per centageOrdered By: Romina Majano on 01-21-2025 Nucleated RBC/100 WBC (Bld) [Ratio] 0 % 0-5 [facility] Platelet countOrdered By: Nataliya Majano on 01-21-2025 Platelets (Bld) [#/Vol] 162 10*3/uL 150-450 [facility] RBC Auto (Bld) [#/Vol]Ordere d By: Romina Majano on 01-21-2025 RBC (Bld) [#/Vol] 4.79 10*6/uL 4.6-6.2 [facility] White blood cell (WBC) count Ordered By: Romina Irvinke on 01-21-2025 WBC (Bld) [#/Vol] 8.2 10*3/uL 4.4-11.0 [facility] Absolute lymphocyte countOrd ered By: [facility] on 03-04-2024 Lymphocytes Auto (Unsp spec) [#/Vol] 2.99 10*3/uL 0.83-4.51 [facility] Automated lymphocyte count a s percentage of total leukocytesOrdered By: [facility] Gretel on 03-04-2024 Lymphocytes/100 WBC Auto (Unsp spec) 38.3 % 19-41 [facility] Basophil percentageOrdered B y: Romina Irvinke on 03-04-2024 Basophils/100 WBC (Bld) 0.8 % 0-1 [facility] Bilirubin [Mass/Vol] 1.40 mg/dL 0.20-1.00 [facility] Comment on above: For patients on eltr ombopag therapy, use of Dimension [place] TBIL is not recommended. Chloride [Moles/Vol] 106 mmol/L 98-107 [facility] Cholesterol [Mass/Vol] 133 mg/dL <200 [facility] Comment on above: <200 mg/dL Desirable 200-240 mg/dL Borderline >240 mg/dL High Risk Eosinophils/100 WBC (Bld) 0.9 % 0-5 [facility] Glucose [Mass/Vol] 93 mg/dL 74-106 [facility] Hemoglobin (Bld) [Mass/Vol] 14.2 g/dL 13.0-16.5 [facility] Monocytes/100 WBC (Bld) 7.8 % 0-10 [facility] Neutrophils (Bld) [#/Vol] 4.1 10*3/uL 2.0-7.7 [facility] Neutrophils/100 WBC (Bld) 51.9 % 47-70 [facility] Potassium [Moles/Vol] 4.3 mmol/L 3.5-5.[address] [facility] Protein [Mass/Vol] 6.2 g/dL 6.4-8.2 [facility] Sodium [Moles/Vol] 139 mmol/L 136-145 [facility] Triglyceride [Mass/Vol] 107 mg/dL <199 [facility] Comment on above: The drugs N-Acetylcy steine and Metamizole may falsely depress this assay.Serum Triglycerides Reference Interval Normal <150 mg/dL Borderline high 150 - 199 mg/dL High 200 - 499 mg/dL Very High > or = 500 mg/dL WBC (Bld) [#/Vol] 7.8 10*3/uL 4.4-11.0 [facility] Determination of erythrocyte mean corpuscular volume (MCV)Ordered By: Romina Majano on 03-04-2024 MCV (RBC) [Entitic vol] 91.0 fL 80-94 [facility] Erythrocyte distribution wid th ratioOrdered By: [facility] on 03-04-2024 Erythrocyte distribution width (RBC) [Ratio] 14.0 % 11.6-14.6 [facility] Erythrocyte distribution wid th standard deviationOrdered By: [facility] on 03-04-2024 Erythrocyte distribution width (RBC) [Entitic vol] 46.3 fL 35.1-43.9 [facility] Hematocrit Auto (Bld) [Volum e fraction]Ordered By: [facility] Gretel on 03-04-2024 Hematocrit (Bld) [Volume fraction] 44.4 % 40-54 [facility] Immature granulocytes/100 WB C Auto (Bld)Ordered By: [facility] on 03-04-2024 Immature granulocytes/100 WBC (Bld) 0.300 % 0.0-0.9 [facility] Comment on above: IG% - Immature Granu locytes (promyelocytes, myelocytes and metamyelocytes) > 1% indicates that a LEFT SHIFT is Present. Laboratory - Chemistry and C hemistry - challengeOrdered By: [facility] on 03-04-2024 Albumin/Globulin [Mass ratio] 1.2 {ratio} 0.9-2.4 [facility] ALP [Catalytic activity/Vol] 107 U/L 45-117 [facility] ALT [Catalytic activity/Vol] 42 U/L 16-61 [facility] Cholesterol in HDL [Mass/Vol] 50 mg/dL >40 [facility] Comment on above: The drugs N-Acetylcy steine and Metamizole may falsely depress this assay. Reference Range HDL <40 mg/dL Low HDL Cholesterol HDL >or= 60 mg/dL High HDL Cholesterol Cholesterol in LDL [Mass/Vol] 62 mg/dL 0-130 [facility] CO2 [Moles/Vol] 32.0 mmol/L 21.0-32.0 [facility] Globulin (S) [Mass/Vol] 2.8 g/dL 2.2-4.2 [facility] Urea nitrogen/Creatinine [Mass ratio] 19.3 mg/mg 10-20 [facility] Laboratory - Hematology and Cell countsOrdered By: Romina Majano on 03-04-2024 MCH (RBC) [Entitic mass] 29.1 pg 27.0-32.0 [facility] MCHC (RBC) [Mass/Vol] 32.0 g/dL 32-[address] [facility] Nucleated RBC/100 WBC (Bld) [Ratio] 0 % 0-5 [facility] Platelet mean volume (Bld) [Entitic vol] 8.7 fL 6.2-12.0 [facility] Platelets (Bld) [#/Vol] 149 10*3/uL 150-450 [facility] No Panel InformationOrdered By: Romina Majano on 03-04-2024 Estimated GFR (MDRD) Amer 76 mL/min >60 [facility] Comment on above: GFR Calc Estimated GFR (MDRD) Non-Af Amer 63 mL/min >60 [facility] Comment on above: Non- GFR Calc VLDL Cholesterol 21 mg/dL 5-40 [facility] RBC Auto (Bld) [#/Vol]Ordere d By: Romina Majano on 03-04-2024 RBC (Bld) [#/Vol] 4.88 10*6/uL 4.6-6.2 [facility] Serum or plasma calcium kip urement (mass/volume)Ordered By: Romina Majano on 03-04-2024 Calcium [Mass/Vol] 9.0 mg/dL 8.5-10.1 [facility] Serum or plasma creatinine m easurement (mass/volume)Ordered By: Romina Majano on 03-04-2024 Creatinine [Mass/Vol] 1.19 mg/dL 0.70-1.[address] [facility] Comment on above: The validity of the calculated GFR & GFRAA in patients over 70 years has not been determined. Clinical correlation is essential. Serum or plasma urea nitroge n measurement (mass/volume)Ordered By: Romina Majano on 03-04-2024 Urea nitrogen [Mass/Vol] 23 mg/dL 7-18 [facility] Thin prep Papanicolaou smear with manual screeningOrdered By: Romina Majano on 03-04-2024 Thin prep Papanicolaou smear with manual screening 3.4 g/dL 3.2-5.0 [facility] Thin prep Papanicolaou smear with manual screening 25 U/L 15-37 [facility] Thin prep Papanicolaou smear with manual screening 1 5-15 [facility] Clinical Summary: [place] 01-22-2022 [facility] OP Visit Invalid Interpretation Code [facility] Work Phone: Office Visit: New - 1st visi t with practice, Rm: 7on 01-22-2022 NEGATED: Highlighted rowxray history of the Left Hip on 01/11/2022 at [facility] Invalid Interpretation Code [facility] Work Phone: XR HIP 2V AP/ LAT LTon 01-11 XR HIP 2V AP/ LAT LT * * *Final Report* * * DATE OF EXAM: Jan 11 2022 12:03PM LUCITA [id number] - XR HIP 2V AP/ LAT LT / PROCEDURE REASON: M25.552 Pain in left hip * * * * Physician Interpretation * * * * Lower pelvis and left hip radiograph HISTORY: 76 years old Clinical information: M25.552 Pain in left hip LEFT HIP PAIN TECHNIQUE: Images: XR HIP 2V AP/ LAT LT Comparison: None. RESULT: Findings: Mild narrowing superior left hip joint space. Osteophyte formation on the left femoral head and acetabulum. Superior right hip joint space is maintained. No fracture or dislocation of the hips. Remainder of the imaged bony pelvis appears to be intact. Pubic symphysis and imaged SI joints are intact. IMPRESSION: Osteoarthrosis of the left hip. Form Tamping Machine Operator: KAYDEN Transcribe Date/Time: Jan 11 2022 1:25P Dictated by : MIAN YAN MD This examination was interpreted and the report reviewed and electronically signed by: MIAN YAN MD on Jan 11 2022 1:27PM EST [id number] [facility] XR HIP 2V AP/LAT LT (AK)on 0 01-11-2022 [facility] CNNURSEon 01-31-2021 CNNURSE Nurse Visit (COVAMD) CAMERON OGDEN ([id number]) 1945 M Date Time Provider Department 01/31/21 LIANNE BREWSTER JR During your visit today, we recorded the following information about you: Allergies As of Date: 01/31/2021 Noted Allergy Reaction AMITRIPTYLINE 07/23/2005 8 - GI Upset Comments: Constipation DEPAKOTE (DIVALPROEX SODIUM) 11/22/2013 14 - Other: See Comments Comments: increase appetite/fatigue LEXAPRO (ESCITALOPRAM OXALATE) 07/23/2005 8 - GI Upset NORTRIPTYLINE 07/23/2005 14 - Other: See Comments Comments: Dizzy on 20 mg dose. Date Reviewed: 10/13/2020 Reviewed by: Yoly Padilla (Kerfer Machine Operator) JAVI Duron - Fully Assessed Order(s):[employer] SARS-COV-2 VACCINE 2D DOSE APPT [[id number]] Order #: [id number] Prescriptions as of 01/31/2021 Sig: QUINAPRIL 20 MG TABLET Take 1 tablet by mouth once d* FINASTERIDE 5 MG TABLET Take 1 tablet by mouth once d* CARVEDILOL 3.125 MG TABLET Take 1 tablet by mouth twice * PANTOPRAZOLE 20 MG TABLET,DEL* Take 1 tablet by mouth daily * Patient not taking: Reported on 10/13/2020 ATORVASTATIN 20 MG TABLET Take 1 tablet by mouth once d* FLUTICASONE PROPIONATE 50 MCG* Use 2 Sprays in each nostril * Patient not taking: Reported on 10/13/2020 POLYETHYLENE GLYCOL 3350 17 G* Take 17 g by mouth once daily* BETAMETHASONE DIPROPIONATE 0.* Apply 1 application to affect* ASPIRIN 81 MG TABLET,DELAYED * Take 1 tablet by mouth once d* CHOLECALCIFEROL (VITAMIN D3) * Take 1 capsule by mouth once * * CENTRUM SILVER TABLET Take one(1) tablet daily. 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] 03/26/2007 FAMILY HX MALIGNANCY OF KIDNEY [Z80.51] 03/26/2007 DIVERTICULOSIS OF COLON W/O BLEED [K57.30] 03/26/2007 ACUTE GASTRITIS W/O HEMORRHAGE [K29.00] 03/26/2007 DIAPHRAGMATIC HERNIA [K44.9] 03/26/2007 ABD/PEL SWELL/MASS/LUMP LLQ [R19.04] 12/11/2007 HYDROCELE NOS [N43.3] 01/26/2008 BPH W/O URINARY OBS/LUTS [N40.0] 01/26/2008 Inguinal hernia without mention of obstruction *03/02/2008 08/09/2014 Calculus of ureter [N20.1] 07/27/2009 08/09/2014 Renal colic [N23] 07/27/2009 08/09/2014 Elevated Prostate Specific Antigen (PSA) [R97.2*03/01/2010 BPH w Urinary Obs/LUTS [N40.1, N13.8] 03/01/2010 Migraine [G43.909] 10/31/2010 Cluster headache [G44.009] 10/31/2010 Pigmented nevus right great toenail [D22.9] 10/31/2010 Hyperlipidemia [E78.5] 01/01/2012 Flank pain [R10.9] 04/15/2012 08/09/2014 Generalized abdominal pain [R10.84] 04/15/2012 08/09/2014 Testicular pain [N50.819] 04/15/2012 Kidney stone [N20.0] 04/15/2012 Hematuria [R31.9] 04/15/2012 Left inguinal hernia [K40.90] 11/03/2012 Hydrocele, left [N43.3] 11/03/2012 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/20/2012 Skin lesion of sternal region [L98.9] 11/20/2012 Weight loss [R63.4] 05/25/2014 Fatigue [R53.83] 05/25/2014 CLL (chronic lymphocytic leukemia) (HCC) [C91.1*08/09/2014 Recurrent pneumonia [J18.9] 12/19/2014 Presence of drug coated stent in left circumfle*07/14/2015 Presence of drug coated stent in LAD coronary a*07/14/2015 Asymptomatic LV dysfunction [I51.9] 07/14/2015 Sinus bradycardia [R00.1] 07/14/2015 Thrombocytopenia (HCC) [D69.6] 07/21/2015 02/02/2018 ASHD (arteriosclerotic heart disease) [I25.10] 02/11/2016 Drug-induced neutropenia (HCC) [D70.2] 10/01/2016 02/02/2018 Thrombocytopenia, 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] 06/11/2017 02/02/2018 Persistent disorder of initiating or maintainin*02/02/2018 Encounter Status:[facility] [place] 01[place]12-2018 [facility] Office Visit (AGCARDWST) CAMERON OGDEN ([id number]) 1945 MDate Time Provider Department01/12/18 9:00 AM YOMI BARNEY During your visit today, we recorded the following information about you: Pulse Blood pressure Weight 68/minute 128/76 57.2 kgYomi Barney MD 01/13/2018 9:57 AM SignedPERTINENT CARDIAC HISTORYASHD - NSTEMI, PCI LAD/D1/OM1 04/17HTNHLADHERENCE TO GUIDELINESACE-I or ARB for HF with prior LVEFANDlt;40 (NQF 0081) - N/AASA or Plavix for ASHD (NQF 0067) - metBeta allegra for ASHD with prior ME or prior LVEFANDlt;40 (NQF 0070) - metBeta allegra for HF with prior LVEFANDlt;40 (NQF 0083) - N/AACE-I or ARB for ASHD with DM or prior LVEFANDlt;40 (NQF 0066) - metStatin therapy for ASHD or FHL or DM - metBMI documented and plan if ANDgt;25 (NQF 0421) - lifestyle recommendation formTobacco use screening and referral (NQF 0028) - lifestyle recommendation formRecommendation for whole food, plant based diet - lifestyle recommendation formCLINICAL IMPRESSION/PLAN:Cameron Ogden is doing well. I've recommended an echo for assessment of LVfunction post-revascularization. He's been advised to continue his currentmedication and report any increased chest pain or shortness of breath.Blood pressure is well-controlled. Lipid disorder is under good control.Total duration of this visit was greater than 30 minutes, of which more than50% was counseling and review of old records.I will see him in 8 months or as needed.Written and verbal health teaching given to patient, patient verbalizesunderstanding and agrees with treatment plan.This note was generated using Wasabi 3D voice recognition system, and there may besome incorrect words, spellings, and punctuation that were not noted inchecking the note before saving.DIAGNOSIS FOR VISIT:ASHDHypertensionHISTO RY OF PRESENT ILLNESSDavijeff Ogden is a 72-year-old gentleman with multiple cardiac issues, asnoted above. He is seen for follow-up. He was formerly a patient of .He reports that he has had stable exercise tolerance. He has been walking . Herecently finished chemotherapy for CLL.He denies orthopnea. He's had no edema, syncope, palpitations, TIAs oramaurosis or claudication.ALLERGIES:LINDSEY RGIESAllergen Reactions- Amitriptyline GI Upset Constipation- Depakote [Divalproe* Other: See Comments increase appetite/fatigue- Lexapro [Escitalopr* GI Upset- Nortriptyline Other: See Comments Dizzy on 20 mg dose.CURRENT OUTPATIENT MEDICATIONS:quinapril (ACCUPRIL) 20 mg tablet Take 1 tablet by mouth once daily.finasteride (PROSCAR) 5 mg tablet Take 1 tablet by mouth once daily.DOCUSATE CALCIUM (STOOL SOFTENER ORAL) Take by mouth.carvedilol (COREG) 3.125 mg tablet Take 1 tablet by mouth twice daily withmeals.atorvastatin (LIPITOR) 80 mg tablet Take 1 tablet by mouth once daily.Betamethasone Dipropionate 0.05 % lotion Apply 1 application to affected areaonce daily. To scalp. Dispense 1 bottle, not 1mltriamcinolone acetonide (KENALOG) 0.1 % cream Apply 1 application to affectedarea three times daily. Apply sparingly to area for rash/itching.aspirin, enteric coated (ECOTRIN LOW STRENGTH) 81 mg EC tablet Take 1 tablet bymouth once daily.Cholecalciferol, Vitamin D3, 1,000 unit cap Take 1 capsule by mouth once daily.ZOLMitriptan (ZOMIG) 2.5 mg tablet Take 1 tablet by mouth as needed.polyethylene glycol 3350(GLYCOLAX 100 % ORAL POWDER) One scoop as directed.CENTRUM SILVER TAB Take one(1) tablet daily.PAST MEDICAL HISTORYDiagnosis Date- Abnormal loss of weight and underweight- Acute gastritis- Acute gastritis without mention of hemorrhage- Calculus of ureter 07/27/2009- Chronic lymphoid leukemia, without mention of having achievedremission(204.10)- Diaphragmatic hernia without mention of obstruction or gangrene- Diverticulosis of colon (without mention of hemorrhage)- Irritable bowel syndrome- Kidney stone 04/15/2012- ME, old- Migraine without aura- Stricture and stenosis of esophagus- UNILAT INGUINAL HERNIA 03/02/2008PAST SURGICAL HISTORYProcedure Laterality Date- APPENDECTOMY- COLONOSCOP W/ OR W/O BRS SPEC 02/24/2002 Colonoscopy- COLONOSCOP W/ OR W/O BRS SPEC 02/10/98 Colonoscopy- COLONOSCOP W/ OR W/O BRS SPEC few diverticula, normal- COLONOSCOP W/ OR W/O BRS SPEC 03/26/07- COLONOSCOP W/ OR W/O BRS SPEC 09/09/2017 Colonoscopy- COLONOSCOPY 11/18/12 normal-5 year follow up d/t family history- EGD W/O [facility] SPECIMEN W/BX 03/26/07- EGD W/O OR W/BRUSH/WASH EGD with gastritis, pyloric stricture- ESOPH W/O [facility] SPEC BALLOON DIL 03/14/2004 Esophageal dilatation- HEMORRHOID;BAND LIGAT, SNGL/MUL 2002 Hemorrhoidectomy- PAST SURGICAL HISTORY OF oral surgery bone graft- REMOVAL OF TONSILS,ANDlt;13 Y/O Tonsillectomy- REPAIR ING HERNIA,5+Y/O,REDUCIBL 02/24/2008 Right Direct w/ hydocelectomyFAMILY HISTORYProblem Relation Age of Onset- Cancer Mother Colon- Cancer Father Prostate- Cancer Sister Breast with metsSocial History Marital status: Spouse name: Years of education: Number of children:Social History Main Topics Smoking status: Never Smoker Smokeless status: Never Used Alcohol use: No Drug use: No Sexual activity: Yes Partners with: FemaleOther Topics ConcernMilitary Service NoBlood Transfusions NoCaffeine Concern NoOccupational Exposure NoHobby Hazards NoSleep Concern NoStress Concern NoWeight Concern NoSpecial Diet NoBack Care NoExercise NoBike Helmet NoSeat Belt NoSelf-Exams NoREVIEW OF SYSTEMS: General: No chills, fever, weight loss, night sweats.Respiratory: No productive cough. Cardiac: As noted above. GI: No melena.: No dysuria. Musculoskeletal: No myalgias.PHYSICAL EXAMINATION: S/he is alert and in no distress.VITAL SIGNS: BP 128/76 Pulse 68 Wt 126 lb 3.2 oz (57.2kg)SHEENT: Skin is warm and dry. No xanthelasmas appreciated. Pharynx isbenign. There is no oral cyanosis. Neck: supple. No adenopathy or thyroidenlargement. Chest: Clear to percussion and auscultation. Trachea is midline. Air entry is equal. There is no chest wall tenderness. Cardiac: Regularrhythm. S1 and S2 are normal. PMI is nondisplaced. There is a soft systolicejection murmur. No click is heard. Carotids are brisk without bruits. JVPis less than 10 cm. Abdomen: Soft and nontender. There are no pulsatilemasses or bruits. No liver enlargement. Bowel sounds are active.Extremities: No edema. Pulses are intact and symmetrical. No clubbing orcyanosis. No femoral bruits. Neurologic: Grossly normal motor and sensory.S/he is alert and oriented x4.Previous records were reviewed. Recent laboratory studies show normal renalfunction. CBC is within normal limits. LDL was 39.EKG shows sinus rhythm and shows early R-wave progression, otherwise withinnormal limits. There is no significant change from 04/25/15.Prior studies show left ventricular function to be mildly impaired.Electronically Signed:Yomi Barney [facility] 2017 9:33 [facility]:Dianleys Esteban MD 01/12/2018 9:34 AM SignedLIFESTYLE CHANGEA healthy lifestyle is the most important component of your overall treatmentplan. Please give serious thought to the following areas and commit to makinglong term changes.EAT A WHOLE FOOD, PLANT BASED DIETThe nutrition your body gets is more important than the medicine you take.What matters most is the overall way you eat. We encourage you to minimize theuse of animal products (which include dairy and all meats except fatty fish)and use whole, unprocessed plant foods to provide your protein, vitamins andother nutrients. We have a lot of information to share with you on this topic. We also hold Shared Medical Appointments, where you can come visit with in the company of other patients and spend over an hour talking aboutthe challenges of changing the way you eat. This is not a ANDquot;dietANDquot;.It is a way of life that you will keep with you.EXERCISE REGULARLYIt is not important to spend hours in the gym, lifting weights and perspiringheavily. A total of 2-3 hours per week of aerobic (causing you to bemoderately short of breath) exercise is sufficient to improve your health.Talk to us before you begin a new exercise program, if you have heart diseaseor experience shortness of breath or chest pain.REDUCE STRESSChronic emotional and physical stress leads to disease. Ways of reducingstress include meditation, visualization, prayer, yoga and other forms ofrelaxation therapy. Consistency is the blair. Find a technique that works foryou and do it every day.CULTIVATE RELATIONSHIPSLoneliness and isolation have a major negative impact on health. Seek outothers who can love, care for and nurture you. Avoid hurtful relationships.MAINTAIN IDEAL BODY WEIGHTThe best way to do this is to do all the things above. Our bodies naturallyfind the right weight if we keep moving and feed ourselves the right food. Ifyour BMI is greater than 25, we strongly recommend a referral to a weightmanagement program. Please speak to us or your family physician aboutavailable programs.AVOID NICOTINE IN ALL FORMSThis includes all tobacco products, whether chewed, smoked, vaped, or rubbed onthe skin. Smoking cessation programs, which can make use of tobaccosubstitutes, medications to suppress cravings and behavior management, areavailable. Please contact your family physician about programs in your area.Referring Provider: SELF [[id number]]Allergies As of Date: 01/12/2018 Noted Allergy ReactionAMITRIPTYLINE 07/23/2005 8 - GI Upset Comments: ConstipationDEPAKOTE (DIVALPROEX SODIUM) 11/22/2013 14 - Other: See Comments Comments: increase appetite/fatigueLEXAPRO (ESCITALOPRAM OXALATE) 07/23/2005 8 - GI UpsetNORTRIPTYLINE 07/23/2005 14 - Other: See Comments Comments: Dizzy on 20 mg dose.Date Reviewed: 01/12/2018Reviewed by: Audra Palma - Fully AssessedReason for Visit: Recheck [92]Primary Visit Diagnosis:ASHD (arteriosclerotic heart disease) [I25.10] Other Visit Diagnosis:Essential hypertension [I10]Order(s):ECG B/O W INTERP (MED OFFICE) [ECG06] Order #: [id number] ECHO [[id number]] Order #: [id number]: 1 FUTUREPrescriptions as of 01/12/2018 Sig: QUINAPRIL 20 MG TABLET Take 1 tablet by mouth once d* FINASTERIDE 5 MG TABLET Take 1 tablet by mouth once d* STOOL SOFTENER ORAL Take by mouth. CARVEDILOL 3.125 MG TABLET Take 1 tablet by mouth twice * ATORVASTATIN 80 MG TABLET Take 1 tablet by mouth once d* BETAMETHASONE DIPROPIONATE 0.* Apply 1 application to affect* TRIAMCINOLONE ACETONIDE 0.1 %* Apply 1 application to affect* ASPIRIN 81 MG TABLET,DELAYED * Take 1 tablet by mouth once d* CHOLECALCIFEROL (VITAMIN D3) * Take 1 capsule by mouth once * ZOLMITRIPTAN 2.5 MG TABLET Take 1 tablet by mouth as nee* * GLYCOLAX 17 GRAM/DOSE ORAL PO* One scoop as directed. 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] INVALID FOR* FAMILY HX MALIGNANCY OF KIDNEY [Z80.51] INVALID FOR* DIVERTICULOSIS OF COLON W/O BLEED [K57.30] INVALID FOR* ACUTE GASTRITIS W/O HEMORRHAGE [K29.00] INVALID FOR* DIAPHRAGMATIC HERNIA [K44.9] INVALID FOR* ABD/PEL SWELL/MASS/LUMP LLQ [R19.04] INVALID FOR* HYDROCELE NOS [N43.3] INVALID FOR* BPH W/O URINARY OBS/LUTS [N40.0] INVALID FOR* Inguinal hernia without mention of obstruction *INVALID FOR*08/09/2014 Calculus of ureter [N20.1] INVALID FOR*08/09/2014 Renal colic [N23] INVALID FOR*08/09/2014 Elevated Prostate Specific Antigen (PSA) [R97.2*INVALID FOR* BPH w Urinary Obs/LUTS [N40.1] INVALID FOR* Migraine [G43.909] INVALID FOR* Cluster headache [G44.009] INVALID FOR* Pigmented nevus right great toenail [D22.9] INVALID FOR* Hyperlipidemia [E78.5] INVALID FOR* Flank pain [R10.9] INVALID FOR*08/09/2014 Generalized abdominal pain [R10.84] INVALID FOR*08/09/2014 Testicular pain [N50.819] INVALID FOR* Kidney stone [N20.0] INVALID FOR* Hematuria [R31.9] INVALID FOR* Left inguinal hernia [K40.90] INVALID FOR* Hydrocele, left [N43.3] INVALID FOR* 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] INVALID FOR* Skin lesion of sternal region [L98.9] INVALID FOR* Weight loss [R63.4] INVALID FOR* Fatigue [R53.83] INVALID FOR* CLL (chronic lymphocytic leukemia) (HCC) [C91.1*INVALID FOR* Recurrent pneumonia [J18.9] INVALID FOR* Presence of drug coated stent in left circumfle*INVALID FOR* Presence of drug coated stent in LAD coronary a*INVALID FOR* Asymptomatic LV dysfunction [I51.9] INVALID FOR* Sinus bradycardia [R00.1] INVALID FOR* Thrombocytopenia (HCC) [D69.6] INVALID FOR* ASHD (arteriosclerotic heart disease) [I25.10] INVALID FOR* Drug induced neutropenia (HCC) [D70.2] INVALID FOR* Thrombocytopenia, 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] INVALID FOR* Other instructions from your clinician: LIFESTYLE CHANGE A healthy lifestyle is the most important component of your overall treatment plan. Please give serious thought to the following areas and commit to making custodial changes. EAT A WHOLE FOOD, PLANT BASED DIET The nutrition your body gets is more important than the medicine you take. What matters most is the overall way you eat. We encourage you to minimize the use of animal products (which include dairy and all meats except fatty fish) and use whole, unprocessed plant foods to provide your protein, vitamins and other nutrients. We have a lot of information to share with you on this topic. We also hold Shared Medical Appointments, where you can come visit with Dr. Barney in the company of other patients and spend over an hour talking about the challenges of changing the way you eat. This is not a diet. It is a way of life that you will keep with you. EXERCISE REGULARLY It is not important to spend hours in the gym, lifting weights and perspiring heavily. A total of 2-3 hours per week of aerobic (causing you to be moderately short of breath) exercise is sufficient to improve your health. Talk to us before you begin a new exercise program, if you have heart disease or experience shortness of breath or chest pain. REDUCE STRESS Chronic emotional and physical stress leads to disease. Ways of reducing stress include meditation, visualization, prayer, yoga and other forms of relaxation therapy. Consistency is the blair. Find a technique that works for you and do it every day. CULTIVATE RELATIONSHIPS Loneliness and isolation have a major negative impact on health. Seek out others who can love, care for and nurture you. Avoid hurtful relationships. MAINTAIN IDEAL BODY WEIGHT The best way to do this is to do all the things above. Our bodies naturally find the right weight if we keep moving and feed ourselves the right food. If your BMI is greater than 25, we strongly recommend a referral to a weight management program. Please speak to us or your family physician about available programs. AVOID NICOTINE IN ALL FORMS This includes all tobacco products, whether chewed, smoked, vaped, or rubbed on the skin. Smoking cessation programs, which can make use of tobacco substitutes, medications to suppress cravings and behavior management, are available. Please contact your family physician about programs in your area. Status:Closed by YOMI BARNEY MD on 01/13/18 [facility] PROGRESSon 01-12-2018 PROGRESS HNO ID: [id number] thor: Yomi Casey: (none)Author Type: PhysicianType: Progress NotesFiled: 01/13/2018 9:57 AMNote Text:PERTINENT CARDIAC HISTORYASHD - NSTEMI, PCI LAD/D1/OM1 04/17HTNHLADHERENCE TO GUIDELINESACE-I or ARB for HF with prior LVEF<40 (NQF 0081) - N/AASA or Plavix for ASHD (NQF 0067) - metBeta allegra for ASHD with prior ME or prior LVEF<40 (NQF 0070) - metBeta allegra for HF with prior LVEF<40 (NQF 0083) - N/AACE-I or ARB for ASHD with DM or prior LVEF<40 (NQF 0066) - metStatin therapy for ASHD or FHL or DM - metBMI documented and plan if >25 (NQF 0421) - lifestyle recommendation formTobacco use screening and referral (NQF 0028) - lifestyle recommendationformRecommend ation for whole food, plant based diet - lifestyle recommendationformCLINICAL IMPRESSION/PLAN:Cameron Ogden is doing well. I've recommended an echo for assessment ofLV function post-revascularization. He's been advised to continue hiscurrent medication and report any increased chest pain or shortness ofbreath.Blood pressure is well-controlled. Lipid disorder is under good control.Total duration of this visit was greater than 30 minutes, of which morethan 50% was counseling and review of old records.I will see him in 8 months or as needed.Written and verbal health teaching given to patient, patient verbalizesunderstanding and agrees with treatment plan.This note was generated using Was[employer] 3D voice recognition system, and theremay be some incorrect words, spellings, and punctuation that were notnoted in checking the note before saving.DIAGNOSIS FOR VISIT:ASHDHypertensionHISTO RY OF PRESENT ILLNESSDavid Rich Ogden is a 72-year-old gentleman with multiple cardiac issues, asnoted above. He is seen for follow-up. He was formerly a patient of .He reports that he has had stable exercise tolerance. He has been walking. He recently finished chemotherapy for CLL.He denies orthopnea. He's had no edema, syncope, palpitations, TIAs oramaurosis or claudication.ALLERGIES:LINDSEY RGIESAllergen Reactions- Amitriptyline GI Upset Constipation- Depakote [Divalproe* Other: See Comments increase appetite/fatigue- Lexapro [Escitalopr* GI Upset- Nortriptyline Other: See Comments Dizzy on 20 mg dose.CURRENT OUTPATIENT MEDICATIONS:quinapril (ACCUPRIL) 20 mg tablet Take 1 tablet by mouth once daily.finasteride (PROSCAR) 5 mg tablet Take 1 tablet by mouth once daily.DOCUSATE CALCIUM (STOOL SOFTENER ORAL) Take by mouth.carvedilol (COREG) 3.125 mg tablet Take 1 tablet by mouth twice daily withmeals.atorvastatin (LIPITOR) 80 mg tablet Take 1 tablet by mouth once daily.Betamethasone Dipropionate 0.05 % lotion Apply 1 application to affectedarea once daily. To scalp. Dispense 1 bottle, not 1mltriamcinolone acetonide (KENALOG) 0.1 % cream Apply 1 application toaffected area three times daily. Apply sparingly to area for rash/itching.aspirin, enteric coated (ECOTRIN LOW STRENGTH) 81 mg EC tablet Take 1tablet by mouth once daily.Cholecalciferol, Vitamin D3, 1,000 unit cap Take 1 capsule by mouth oncedaily.ZOLMitriptan (ZOMIG) 2.5 mg tablet Take 1 tablet by mouth as needed.polyethylene glycol 3350(GLYCOLAX 100 % ORAL POWDER) One scoop asdirected.CENTRUM SILVER TAB Take one(1) tablet daily.PAST MEDICAL HISTORYDiagnosis Date- Abnormal loss of weight and underweight- Acute gastritis- Acute gastritis without mention of hemorrhage- Calculus of ureter 07/27/2009- Chronic lymphoid leukemia, without mention of having achievedremission(204.10)- Diaphragmatic hernia without mention of obstruction or gangrene- Diverticulosis of colon (without mention of hemorrhage)- Irritable bowel syndrome- Kidney stone 04/15/2012- ME, old- Migraine without aura- Stricture and stenosis of esophagus- UNILAT INGUINAL HERNIA 03/02/2008PAST SURGICAL HISTORYProcedure Laterality Date- APPENDECTOMY- COLONOSCOP W/ OR W/O [facility] SPEC 02/24/2002 Colonoscopy- COLONOSCOP W/ OR W/O [facility] SPEC 02/10/98 Colonoscopy- COLONOSCOP W/ OR W/O [facility] SPEC few diverticula, normal- COLONOSCOP W/ OR W/O [facility] SPEC 03/26/07- COLONOSCOP W/ OR W/O [facility] SPEC 09/09/2017 Colonoscopy- COLONOSCOPY 11/18/12 normal-5 year follow up d/t family history- EGD W/O [facility] SPECIMEN W/BX 03/26/07- EGD W/O OR W/BRUSH/WASH EGD with gastritis, pyloric stricture- ESOPH W/O [facility] SPEC BALLOON DIL 03/14/2004 Esophageal dilatation- HEMORRHOID;BAND LIGAT, SNGL/MUL 2002 Hemorrhoidectomy- PAST SURGICAL HISTORY OF oral surgery bone graft- REMOVAL OF TONSILS,<13 Y/O Tonsillectomy- REPAIR ING HERNIA,5+Y/O,REDUCIBL 02/24/2008 Right Direct w/ hydocelectomyFAMILY HISTORYProblem Relation Age of Onset- Cancer Mother Colon- Cancer Father Prostate- Cancer Sister Breast with metsSocial History Marital status: Spouse name: Years of education: Number of children:Social History Main Topics Smoking status: Never Smoker Smokeless status: Never Used Alcohol use: No Drug use: No Sexual activity: Yes Partners with: FemaleOther Topics ConcernMilitary Service NoBlood Transfusions NoCaffeine Concern NoOccupational Exposure NoHobby Hazards NoSleep Concern NoStress Concern NoWeight Concern NoSpecial Diet NoBack Care NoExercise NoBike Helmet NoSeat Belt NoSelf-Exams NoREVIEW OF SYSTEMS: General: No chills, fever, weight loss, night sweats. Respiratory: No productive cough. Cardiac: As noted above. GI: Nomelena. : No dysuria. Musculoskeletal: No myalgias.PHYSICAL EXAMINATION: S/he is alert and in no distress.VITAL SIGNS: BP 128/76 Pulse 68 Wt 126 lb 3.2 oz (57.2kg)SHEENT: Skin is warm and dry. No xanthelasmas appreciated. Pharynx isbenign. There is no oral cyanosis. Neck: supple. No adenopathy orthyroid enlargement. Chest: Clear to percussion and auscultation.Trachea is midline. Air entry is equal. There is no chest walltenderness. Cardiac: Regular rhythm. S1 and S2 are normal. PMI isnondisplaced. There is a soft systolic ejection murmur. No click isheard. Carotids are brisk without bruits. JVP is less than 10 cm.Abdomen: Soft and nontender. There are no pulsatile masses or bruits. Noliver enlargement. Bowel sounds are active. Extremities: No edema.Pulses are intact and symmetrical. No clubbing or cyanosis. No femoralbruits. Neurologic: Grossly normal motor and sensory. S/he is alert andoriented x4.Previous records were reviewed. Recent laboratory studies show normalrenal function. CBC is within normal limits. LDL was 39.EKG shows sinus rhythm and shows early R-wave progression, otherwisewithin normal limits. There is no significant change from 04/25/15.Prior studies show left ventricular function to be mildly impaired.Electronically Signed:Yomi Barney, [facility] 2017 9:33 [facility]:Carlos A Gomes MD Normal [facility] Vital Signs Date Time Vital Sign Value Performing Clinician Facility NEGATED: Highlighted [id number] 08:48-0400 Body height 161.29 cm Alejandra Salma [facility] Work Phone: NEGATED: Highlighted [id number] 08:48-0400 Body height 161 cm Alejandra Marsh [employer] WORK[employer] [facility] Work Phone: NEGATED: Highlighted [id number] 08:48-0400 Body mass index (BMI) [Ratio] 21.35 kg/m2 Alejandra Marsh [facility] Work Phone: NEGATED: Highlighted [id number] 08:48-0400 Body weight 55.34 kg Alejandra Marsh GENERATOR WORKER [facility] Work Phone: NEGATED: Highlighted [id number] 08:48-0400 Body weight 55 kg Alejandra Marsh GENERATOR WORKER [facility] Work Phone: Encounters Encounter Date Encounter Type Care Provider Facility Start: 03-02-2025 End: 03-02-2025 ambulatory Mir Weathersruatiya Facility:[facility] Start: 01-31-2025 End: 01-31-2025 ambulatory Romina Gretel Facility[facility] Start: 01-21-2025 End: 01-21-2025 ambulatory Romina Majano MD Work Phone: [facility] Work Phone: Start: 01-21-2025 End: 01-21-[address] Romina Majano MD [facility] Work Phone: Start: 01-21-2025 End: 01-21-2025 ambulatory Romina Majano Facility:[facility] Start: 03-04-2024 End: 03-04-2024 ambulatory [facility] Work Phone: Start: 03-04-2024 End: 03-04-2024 Patient encounter procedure [facility] Work Phone: Start: 02-18-2022 ambulatory Barbara Rosario MA [facility] Comment on above: [facility] vigation Outreach ([employer] ) Start: 01-11-2022 End: 01-11-2022 Subsequent hospital visit by physician [facility] Work Phone: Radiology Comment on above: Pain in left hip [M2 5.552] Start: 09-14-2018 Ambulatory YOMI BARNEY Facility :[facility] Start: 01-12-2018 End: 01-12-2018 Ambulatory YOMI BARNEY [facility] Procedures Date Procedure Procedure Detail Performing Clinician Start: 01-21-2025 Plain x-ray of pelvi s and lower extremity Romina Majano MD Work Phone: Start: 01-22-2022 End: 01-22-2022 BP scrn no perf at interval Joshua Veloz MD Work Phone: Start: 01-22-2022 End: 01-22-2022 Calc BMI norm parameters Joshua Veloz MD Work Phone: Start: 01-22-2022 End: 01-22-2022 Current tobacco non-user cad cap copd pv dm Joshua Veloz MD Work Phone: Start: 01-22-2022 End: 01-22-2022 Docrev cur meds by elig clin Joshua Veloz MD Work Phone: Start: 01-22-2022 End: 01-22-2022 Osteoarthritis symptoms&funcjal status asses Joshua Veloz MD Work Phone: Start: 01-22-2022 End: 01-22-2022 Pain neg no plan Joshua Veloz MD Work Phone: Start: 01-22-2022 End: 01-22-2022 Patient encounter procedure Joshua Veloz MD Work Phone: Start: 01-22-2022 End: 01-22-2022 Radiologic examination pelvis 1/2 views Joshua Veloz MD Work Phone: Start: 01-11-2022 Radex hip unilateral with pelvis 2-3 views Antonia Gutierrez MD Work Phone: Start: 05-09-2020 Adult depression screening assessment [employer] Work Phone: Start: 09-09-2017 Colonoscopy [employer] Work Phone: Start: 07-14-2015 History of placement of stent in anterior descending branch of left coronary artery Presence of drug coated stent in LAD coronary artery [employer] Work Phone: NEGATED: Highlighted rowStart: 01-22-2022 End: 01-22-2022 Documentation of current medications Alejandra Marsh LPN Plan of Treatment Date Care Activity Detail Author Start: 04-14-2025 LIPID SCREEN LIPID SCREEN [facility] Start: 10-13-2023 DIABETES SCREEN DIABETES SCREEN [facility] Start: 09-09-2022 Colonoscopy COLONOSCOPY [facility] Start: 09-09-2022 COLORECTAL CANCER SCREENING COLORECTAL CANCER SCREENING [facility] Start: 07-04-2022 Influenza vaccination INFLUENZA (Season Ended) [facility] Start: 01-29-2022 COVID-19 VACCINE (4 - Booster for Pfizer series) COVID-19 VACCINE (4 - Booster for Pfizer series) [facility] Start: 01-22-2022 End: 01-22-2022 Patient encounter procedure Appointment [facility] Work Phone: Start: 12-01-2021 COVID-19 VACCINE (4 - Booster for Pfizer series) COVID-19 VACCINE (4 - Booster for Pfizer series) [facility] Start: 11-03-2021 ADVANCE DIRECTIVE DISCUSSION ADVANCE DIRECTIVE DISCUSSION [facility] Start: 08-18-2021 ANNUAL PCP TEAM CHRONIC DISEASE VISIT ANNUAL PCP TEAM CHRONIC DISEASE VISIT [facility] Start: 07-04-2021 Influenza vaccination INFLUENZA (#1) [facility] Start: 05-09-2021 Adult depression screening assessment DEPRESSION SCREENING [facility] Start: 04-14-2021 Hepatitis B surface antibody level LDL CHOLESTEROL [facility] Start: 07-30-2020 Urine microalbumin profile DTAP,TDAP,TD (2 - Td or Tdap) [facility] Start: 05-26-2015 FECAL OCCULT BLOOD FECAL OCCULT BLOOD [facility] Start: 1996 SHINGRIX VACCINE (1 of 2) SHINGRIX VACCINE (1 of 2) [facility] Start: 1991 COLOGUARD (FIT-DNA) COLOGUARD (FIT-DNA) [facility] Start: [address] COLONOGRAPHY [facility] Start: 1991 SIGMOIDOSCOPY SIGMOIDOSCOPY [facility] Start: 1964 BP CONTROLLED (<130/80) BP CONTROLLED (<130/80) [facility] inic Immunizations Immunization Date Immunization Notes Care Provider Gio washburn 01-31-2021 COVID-19 vaccine, ag e 12+ yr (PFIZER-BIONTECH - PURPLE TOP) [employer] Work Phone: [facility] Work Phone: 01-10-2021 COVID-19 vaccine, ag e 12+ yr (PFIZER-BIONTECH - PURPLE TOP) [employer] Work Phone: [facility] Work Phone: 08-05-2020 influenza, high-dose , quadrivalent vaccine (FLUZONE HIGH DOSE QUADRIVALENT) [employer] Work Phone: [facility] 08-10-2019 influenza, high dose seasonal, preservative-free [employer] Work Phone: [facility] 08-01-2018 influenza, high dose seasonal, preservative-free [employer] Work Phone: [facility] 01-31-2017 pneumococcal polysaccharide vaccine, 23 valent [employer] Work Phone: [facility] 08-06-2016 influenza, high dose seasonal, preservative-free [employer] Work Phone: [facility] 08-17-2015 influenza, seasonal, injectable [employer] Work Phone: [facility] 11-25-2014 pneumococcal conjuga te vaccine, 13 valent [employer] Work Phone: [facility] 08-23-2014 influenza, seasonal, injectable [employer] Work Phone: [facility] 08-13-2012 influenza virus vacc ine, unspecified formulation [employer] Work Phone: [facility] Work Phone: 09-02-2011 pneumococcal polysaccharide vaccine, 23 valent [employer] Work Phone: [facility] 07-30-2010 tetanus toxoid, redu ghulam diphtheria toxoid, and acellular pertussis vaccine, adsorbed [employer] Work Phone: [facility] 08-21-2009 influenza virus vacc ine, unspecified formulation [employer] Work Phone: [facility] Work Phone: 10-23-2005 influenza virus vacc ine, unspecified formulation [employer] Work Phone: [facility] 06-25-2004 pneumococcal polysaccharide vaccine, 23 valent [employer] Work Phone: [facility] Work Phone: Payers Date Payer Category Payer Self-pay 2021 Medicare [employer] MEDICARE [employer] MEDICARE PPO [id number] 2021-Present [phone] [address] [address] [place] [address] PPO [id number] 2013 Private Health Insurance [id number] Unknown [id number] Unknown [id number] Unknown 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 (finding) [facility] Start: 04-14-2020 End: 08-11-2020 History SDOH Alcohol Frequency 1 [facility] Start: 02-01-2020 End: 08-11-2020 History SDOH Social Connections Phone 2 [facility] Start: 02-01-2020 End: 05-09-2020 History SDOH Social Connections Living 5 [facility] Start: 08-11-2020 History SDOH Physica l Activity DPW 0 [facility] Start: 02-01-2020 Education 18 [facility] Start: 1945 Sex Assigned At Not on file C [facility] Start: 01-01-2022 End: 01-11-2022 Exposure to SARS-CoV-2 (event) Not sure [facility] Start: 01-22-2022 End: 01-22-2022 Assertion Unknown if ever smoked [facility] Work Phone: Start: 1945 Sex Assigned At Male [facility] Start: 01-28-2025 Sex Male (finding) [facility] Clinical Notes 06-11-2017 to 01-21-2025 Barbara Rosario - 02/18/2022 10:03 AM Manjeet Lindsey, RT(R) - 01/11/2022 11:40 AM EST Note Date & Type Note Facility 01-21-2025 Radiology Diagnostic study note [facility] Imaging Services [address] [place], [place] [address] HIP, UNI W/ Pelvis 2-3 Views MR#: [id number] Acct: [id number] Name: CAMERON OGDEN Rep #: [id number] : 1945 M 79 From: Yancy Rodgers MD PCP: Dr. Romina Majano MD Status: REG CL I Study:HIP, UNI W/ Pelvis 2-3 Views Date of Ex am: 01/21/25 Exam# [id number] Ordering Dr: Faith Majano MD EXAM: XR Left Hip With Pelvis When Performed, 2 or 3 Views CLINICAL INDICATION: HIP PAIN TECHNIQUE: Two or three views of the left hip with pelvis when performed. COMPARISON: No relevant prior studies available. FINDINGS: BONES/JOINTS: Moderate degenerative changes of the left hip joint. No acute fracture. No dislocation. SOFT TISSUES: Unremarkable. RAD/HIP, UNI W/ Pelvis 2-3 Views IMPRESSION: Degenerative changes as above. Reading Location: [facility] CC: Dr. 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 [facility] 04-14-2023 Note Patient Outreach (JAVIER TNAV) CAMERON OGDEN ([id number]) 1945 M Date Time Provider Department 04/14/23 CYN AUGUSTIN FRANCI During your visit today, we recorded the following information about you: Cyn Norma 04/14/2023 8:53 AM Signed POPULATION HEALTH NAVIGATION OUTREACH Action/FYI Left message to capp PCP and schedule Wellness exam My chart sent Patient Identified by Name and : NO Outreach Outcome/Action Unable to reach patient: Left message [employer] message sent Did you use a PCP flex slot to schedule this appointment? N/A Reason for Outreach QAI Payer: Payor: [employer] MEDICARE / Plan: [employer] MEDICARE PPO / Product Type: PPO / Care Gap Reviewed:: Annual Wellness visit Reminder: Reminder note to check Health Maintenance for items below Health Maintenance items due: BP CONTROLLED (<130/80) Never done SHINGRIX VACCINE(1 of 2) Never done DTAP,TDAP,TD(2 - Td or Tdap) due on 07/30/2020 LDL CHOLESTEROL due on 04/14/2021 ANNUAL PCP TEAM CHRONIC DISEASE VISIT due on 08/18/2021 ADVANCE DIRECTIVE DISCUSSION Never done DEPRESSION ASSESSMENT Never done Navigation Signature: Cyn Augustin April 14, 2023 8:50 AM Allergies As of Date: 04/14/2023 Noted Allergy Reaction AMITRIPTYLINE 07/23/2005 8 - GI Upset Comments: Constipation DEPAKOTE (DIVALPROEX SODIUM) 11/22/2013 14 - Other: See Comments Comments: increase appetite/fatigue LEXAPRO (ESCITALOPRAM OXALATE) 07/23/2005 8 - GI Upset NORTRIPTYLINE 07/23/2005 14 - Other: See Comments Comments: Dizzy on 20 mg dose. Date Reviewed: 10/13/2020 Reviewed by: Yoly South) JAVI Duron - Fully Assessed Reason for Visit: Population Health Navigation Outreach [3910] Cmt: Qai care gap Prescriptions as of 04/14/2023 - quinapril (ACCUPRIL) 20 mg tablet Take 1 tablet by mouth once daily. - finasteride (PROSCAR) 5 mg tablet Take 1 tablet by mouth once daily. - carvedilol (COREG) 3.125 mg tablet Take 1 tablet by mouth twice daily with meals. - pantoprazole DR (PROTONIX) 20 mg tablet Take 1 tablet by mouth daily before breakfast. Take on empty stomach, 1/2 hr before meal. - atorvastatin (LIPITOR) 20 mg tablet Take 1 tablet by mouth once daily. - fluticasone (FLONASE) 50 mcg/actuation nasal spray Use 2 Sprays in each nostril once daily. Rinse mouth after use. - polyethylene glycol 3350 (GLYCOLAX) 17 gram/dose powder Take 17 g by mouth once daily. (around 7PM) - Betamethasone Dipropionate 0.05 % lotion Apply 1 application to affected area once daily. To scalp. Dispense 1 bottle, not 1ml - aspirin, enteric coated (ECOTRIN LOW STRENGTH) 81 mg EC tablet Take 1 tablet by mouth once daily. - Cholecalciferol, Vitamin D3, 1,000 unit cap Take 1 capsule by mouth once daily. - CENTRUM SILVER TAB Take one(1) tablet daily. 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] 03/26/2007 FAMILY HX MALIGNANCY OF KIDNEY [Z80.51] 03/26/2007 DIVERTICULOSIS OF COLON W/O BLEED [K57.30] 03/26/2007 ACUTE GASTRITIS W/O HEMORRHAGE [K29.00] 03/26/2007 DIAPHRAGMATIC HERNIA [K44.9] 03/26/2007 ABD/PEL SWELL/MASS/LUMP LLQ [R19.04] 12/11/2007 HYDROCELE NOS [N43.3] 01/26/2008 BPH W/O URINARY OBS/LUTS [N40.0] 01/26/2008 Inguinal hernia without mention of obstruction *03/02/2008 08/09/2014 Calculus of ureter [N20.1] 07/27/2009 08/09/2014 Renal colic [N23] 07/27/2009 08/09/2014 Elevated Prostate Specific Antigen (PSA) [R97.2*03/01/2010 BPH w Urinary Obs/LUTS [N40.1, N13.8] 03/01/2010 Migraine [G43.909] 10/31/2010 Cluster headache [G44.009] 10/31/2010 Pigmented nevus right great toenail [D22.9] 10/31/2010 Hyperlipidemia [E78.5] 01/01/2012 Flank pain [R10.9] 04/15/2012 08/09/2014 Generalized abdominal pain [R10.84] 04/15/2012 08/09/2014 Testicular pain [N50.819] 04/15/2012 Kidney stone [N20.0] 04/15/2012 Hematuria [R31.9] 04/15/2012 Left inguinal hernia [K40.90] 11/03/2012 Hydrocele, left [N43.3] 11/03/2012 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/20/2012 Skin lesion of sternal region [L98.9] 11/20/2012 Weight loss [R63.4] 05/25/2014 Fatigue [R53.83] 05/25/2014 CLL (chronic lymphocytic leukemia) (HCC) [C91.1*08/09/2014 Recurrent pneumonia [J18.9] 12/19/2014 Presence of drug coated stent in left circumfle*07/14/2015 Presence of drug coated stent in LAD coronary a*07/14/2015 Asymptomatic LV dysfunction [I51.9] 07/14/2015 Sinus bradycardia [R00.1] 07/14/2015 Thrombocytopenia (HCC) [D69.6] 07/21/2015 02/02/2018 ASHD (arteriosclerotic heart disease) [I25.10] 02/11/2016 Drug-induced neutropenia (HCC) [D70.2] 10/01/2016 02/02/2018 Thrombocytopenia, 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 [facility] 04-14-2023 Note HNO ID: [id number] Author: Cyn Augustin Service: ? Author Type: ? Type: Progress Notes Filed: 04/14/2023 8:53 AM Note Text: POPULATION HEALTH NAVIGATION OUTREACH Action/FYI Left message to capp PCP and schedule Wellness exam My chart sent Patient Identified by Name and : NO Outreach Outcome/Action Unable to reach patient: Left message [employer] message sent Did you use a PCP flex slot to schedule this appointment? N/A Reason for Outreach QAI Payer: Payor: [employer] MEDICARE / Plan: [employer] MEDICARE PPO / Product Type: PPO / Care Gap Reviewed:: Annual Wellness visit Reminder: Reminder note to check Health Maintenance for items below Health Maintenance items due: BP CONTROLLED (<130/80) Never done SHINGRIX VACCINE(1 of 2) Never done DTAP,TDAP,TD(2 - Td or Tdap) due on 07/30/2020 LDL CHOLESTEROL due on 04/14/2021 ANNUAL PCP TEAM CHRONIC DISEASE VISIT due on 08/18/2021 ADVANCE DIRECTIVE DISCUSSION Never done DEPRESSION ASSESSMENT Never done Navigation Signature: Cyn Augustin April 14, 2023 8:50 AM [facility] 02-18-2022 History of Present illness Narrative POPULATION HEALTH NAVIGATION OUTREACH Action/FYI Human caregaps Patient due for the following: Annual exam/Verify PCP Bp control Advance Directives Left voicemail for patient to return call [employer] message sent Pt identified by name and : NO Outreach Outcome/Action Unable to reach patient: Left message MyChart message sent Reason for Outreach Care Gap or Scheduling/Wellness visits Payer: Payor: [employer] MEDICARE / Plan: [employer] MEDICARE PPO / Product Type: PPO / Care Gap Reviewed:: Annual Wellness visit Controlling Blood Pressure Reminder: Reminder note to check Health Maintenance for items below Health Maintenance items due: BP CONTROLLED (<130/80) Never done SHINGRIX VACCINE(1 of 2) Never done DTAP,TDAP,TD(2 - Td or Tdap) due on 07/30/2020 LDL CHOLESTEROL due on 04/14/2021 DEPRESSION S CREENING due on 05/09/2021 ANNUAL PCP TEAM CHRONIC DISEASE VISIT due on 08/18/2021 ADVANCE DIRECTIVE DISCUSSION Never done COVID-19 VACCINE(4 - Booster for Pfizer series) due on 12/01/2021 Message Sent to Practice: No Navigation Signature: Barbara Rosario February 18, 2022 10:03 AM documented in this encounter [facility] 01-11-2022 Note HNO ID: [id number] Author: CARLOS Garcia) Service: Radiology Author Type: Technologist Type: Progress Notes Filed: 01/11/2022 12:04 PM Note Text: Radiology Service Progress Note PATIENT NAME: Cameron Ogden DATE OF SERVICE: January 11, 2022 TIME: 12:04 PM PATIENT IDENTITY VERIFICATION COMPLETED USING TWO (2) IDENTIFIERS: Name and Date of confirmed by patient verbally. FALL SCREENING: Has the patient had 2 falls in the last year or 1 fall with injury or currently using an Ambulatory Assistive Device (Walker, Cane, Wheelchair, Crutches, etc.)? No PATIENT GENDER DATA: Male PATIENT RELEVANT IMPLANT DATA REVIEWED: Not Applicable RADIOLOGY DEPARTMENT: General X-ray: Exam(s) Completed: Pelvis X-Ray: Pelvis with Hip Left PERIPHERAL IV DATA: Not applicable SIGNED BY: RT Radha(Kalani) January 11, 2022 12:04 PM [facility] 01-11-2022 History of Present illness Narrative Radiology Service Progress Note PATIENT NAME: Cameron Ogden DATE OF SERVICE: January 11, 2022 TIME: 12:04 PM PATIENT IDENTITY VERIFICATION COMPLETED USING TWO (2) IDENTIFIERS: Name and Date of confirmed by patient verbally. FALL SCREENING: Has the patient had 2 falls in the last year or 1 fall with injury or currently using an Ambulatory Assistive Device (Walker, Cane, Wheelchair, Crutches, etc.)? No PATIENT GENDER DATA: Male PATIENT RELEVANT IMPLANT DATA REVIEWED: Not Applicable RADIOLOGY DEPARTMENT: General X-ray: Exam(s) Completed: Pelvis X-Ray: Pelvis with Hip Left PERIPHERAL IV DATA: Not applicable SIGNED BY: RT Radha(Kalani) January 11, 2022 12:04 PM documented in this encounter [facility] 06-11-2017 History of Past i llness Narrative Problem Noted Date Resolved Date Thrombocytopenia, secondary 06/11/2017 04/12/2017 Drug-induced neutropenia 10/01/2016 018 Thrombocytopenia 07/21/2015 02/02/2018 Flank pain 04/15/2012 08/09/2014 Generalized abdominal pain 04/15/201208/09 Calculus of ureter 07/27/2009 08/09/2014 Renal colic 07/27/2009 08/09/2014 Inguinal hernia without ment ion of obstruction or gangrene, unilateral or unspecified, (not specified as recurrent) 03/02/2008 08/09/2014 documented as of this encounter (statuses as of 01/12/2022) [facility] History of Past illness Narrative* Problem Noted Date Resolved Date Thrombocytopenia, secondary 06/11/201712/2017 Drug-induced neutropenia 10/01/2016 018 Thrombocytopenia 07/21/2015 02/02/2018 Flank pain 04/15/2012 08/09/2014 Generalized abdominal pain 04/15/201208/09 Calculus of ureter 07/27/2009 08/09/2014 Renal colic 07/27/2009 08/09/2014 Inguinal hernia without ment ion of obstruction or gangrene, unilateral or unspecified, (not specified as recurrent) 03/02/2008 08/09/2014 documented as of this encounter (statuses as of 02/18/2022) [facility] noteThere may be information available, but it has not been provided by the sender.[facility] Work Phone: Evaluation noteNo assessment information available [facility] Work Phone: Instructions* Instruction Description Start Date Completed [facility] Work Phone: Reason for referral (narrative)No reason for referral information availableWSheltering [facility] Work Phone: Summary Purpose Family History No Family History Records FoundNo Family History Records FoundNo Family History Records FoundThere may be information available, but it has not been provided by the sender.No Family History Records FoundNo Family History Records Found Advance Directives No Advanced Directives Records FoundDocuments on File Type Date Recorded 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 Advance Directive(s) 09/09/2017 10:55 AM Advance Directive(s) 02/01/2009 10:17 PM Advance Directive Response Recorded Date/ Time Advance Directives Yes November 15, 2016 6:11pm Living Will Yes September 12, 017 3:55pm Power of Doughnut Glazier Yes September 12, 2017 3:55pm Advance Directive Response Recorded Date/ Time Advance Directives Yes November 15, 2016 6:11pm Chief Complaint Chief Complaint Description Start Date left hip pain Preliminary chief co mplaint data, not yet signed by the author as of Chief Complaint and Reason for Visit Chief Complaint Admit Date EORDER LABS/ ADD HIP XRAY January 21 10:56am Additional Source Comments (unrecognized sect ion and content) No Status Records FoundNo Status Records FoundNo Status Records FoundNo Status Records FoundNo Status Records Found INFORMATION SOURCE (unrecogn ized section and content) DATE CREATED AUTHOR 04/24/2018 [facility] DATE CREATED AUTHOR AUTHOR'S ORGANIZ ATION 04/24/2018 [facility] DATE CREATED AUTHOR AUTHOR'S ORGANIZ ATION 01/13/2022 [facility] DATE CREATED AUTHOR AUTHOR'S ORGANIZ ATION 04/16/2023 [facility] DATE CREATED AUTHOR AUTHOR'S ORGANIZ ATION 03/07/2025 [facility] Source Comments (unrecognize d section and content) In the event this informatio n is protected by the Federal Confidentiality of Alcohol and Drug Abuse Patient Records regulations: The Federal rules restrict any use of the information to criminally investigate or prosecute any alcohol or drug abuse patient.[facility] the event this information is protected by the Federal Confidentiality of Alcohol and Drug Abuse Patient Records regulations: The Federal rules restrict any use of the information to criminally investigate or prosecute any alcohol or drug abuse patient.[facility] Reason for Visit (unrecogniz ed section and content) Reason Comments Left Hip Pain Reason For Visit Description Start Date New - 1st visit with practice Preliminary reason f or visit data, not yet signed by the author as of left hip pain Reason Onset Date Comments Population Health Navigation Outreach 02/18/2022 [employer] Care Teams (unrecognized sec tion and content) Wealth Management Director Relationship Specialty Start Date End Date Antonia Gutierrez MD [address] [phone] PCP - General Internal Medicine 01/11/22 Wealth Management Director Relationship Specialty Start Date End Date Antonia Gutierrez MD [address] [phone] PCP - General Internal Medicine 01/11/22 Team Status: Active Member Role Status Dates Dr. Carlos A Gomes MD Family Provider Active Romina Majano MD Primary Care Provider Active Team Status: Inactive Member Role Status Dates Romina Majano MD Primary Care Provide r, Attending Provider, Referring Provider Active Team Status: Inactive Member Role Status Dates Romina Majano MD Primary Care Provider Active St art: January 21, 2025 End: January 21, 2025 Romina Majano MD Attending Provider Active Start : January 21, 2025 End: January 21, 2025 Romina Majano MD Referring Provider Active Start : January 21, 2025 End: January 21, 2025 Goals (unrecognized section and content) Goals may be documented in a n alternate sectionGoals may be documented in an alternate section FOR RECORDS PERTAINING TO PATIENTS WHO ARE OR HAVE BEEN ENROLLED IN A CHEMICAL DEPENDENCY/SUBSTANCEABUSE PROGRAM, SOME INFORMATION MAY BE OMITTED. This clinical summary was aggregated from multiple sources. Caution should be exercised in using it in the provision of clinical care. This summary normalizes information from multiple sources, and as a consequence, information in this document may materially change the coding, format and clinical context of patient data. In addition, data may be omitted in some cases. CLINICAL DECISIONS SHOULD BE BASED ON THE PRIMARY CLINICAL RECORDS. [employer] [facility]. provides no warranty or guarantee of the accuracy or completeness of information in this document.
[2025-04-06 10:18] LABS: Absolute Lymphocyte Count 4.23 X10^3/uL (0.83-4.51); Absolute Neutrophil Count 3.8 X10^3/uL (2.0-7.7); Basophil# 0.06 X10^3/uL; Basophil% 0.7 % (0-1); Eosinophil# 0.13 X10^3/uL; Eosinophils% 1.5 % (0-5); Hematocrit 43.5 % (40-54); Lymphocyte # 4.23 X10^3/ul (0.83-4.51); Lymphocyte % 47.3 % (19-41); Mean Corp Hgb Conc 32.2 g/dL (32-36); Mean Corpuscular Hgb 29.1 pg (27.0-32.0); Mean Corpuscular Volume 90.4 fL (80-94); Mean Platelet Vol. 8.7 fl (6.2-12.0); Monocyte# 0.74 X10^3/uL; Monocyte% 8.3 % (0-10); NRBC Flagged by Analyzer 0 % (0-5); Neutrophil # 3.77 X10^3/uL (2.7-7.7); Neutrophil % 42.1 % (47-70); Platelet Count 177 K/mm3 (150-450); RBC Distribution Width CV 13.6 % (11.6-14.6); RBC Distribution Width SD 45.3 fl (35.1-43.9); Red Blood Count 4.81 M/mm3 (4.6-6.2); White Blood Count 8.9 K/mm3 (4.4-11.0)
[2025-04-06 10:57] LABS: ALB/GLOB Ratio 1.7 RATIO (0.9-2.4); AST(SGOT) 27 U/L (<=37); Alanine Aminotransfer ALT/SGPT 28 U/L (<=46); Alkaline Phosphatase 117 U/L (40-129); Anion Gap 11 (5-15); BUN 25 mg/dL (4-19); Carbon Dioxide 24.5 mmol/L (21.0-32.0); Chloride 102 mmol/L (98-108); Cholesterol 142 mg/dL (<=200); Creatinine, Serum 1.23 mg/dL (0.70-1.20); EST Glomerular Filtration Rate 60 (>60); Globulin 2.3 g/dL (2.2-4.2); Glucose 98 mg/dL (70-99); High Density Lipoprotein 44 mg/dL; Low Density Lipoprotein Calc. 75 mg/dL; PSA,Total- Diagnostic 2.81 ng/mL (0.00-4.00); Potassium 4.4 mmol/L (3.3-5.1); Protein, Total 6.3 g/dL (5.9-8.4); Sodium Level 138 mmol/L (133-145); Total Bilirubin 0.79 mg/dL (0.00-1.30); Triglycerides 117 mg/dL; Very Low Density Lipoprotein 23 mg/dL (5-40); Vitamin D,25 Hydroxy 44.7 ng/mL (30-100); cholesterol:hdl ratio screen 3.26
== END 2025-04-06 23:59 | disposition home or self-care (01) ==
LOC: MTLAB 07:14
PROVIDERS: PCP Family Medicine; Referring Provider Family Medicine; Visit Provider Family Medicine
DX: E78.5 Hyperlipidemia, unspecified (principal); I10 Essential (primary) hypertension; N40.0 Benign prostatic hyperplasia without lower urinary tract symptoms
CPT/HCPCS: 36415; 80053; 80061; 82306; 84153; 85025